=== PATIENT | male | born 1940 | race Caucasian/White ===

== ENCOUNTER → 2016-08-18 | Outpatient (CLI) | payer OTHER ==
[~2016-08-18] MED LIST: AMLO-110 PO; ASPCH81X PO; DOCU100C31 PO; FERR325T51 PO; LISI-787 PO; LISI40TA PO; LSN5 PO; METO25TA3 PO; NTRGSL4 UT; ONDA4TAB46 PO; OXYC-57 PO; PANC1200 PO; PANT40TA PO; POLY335019 PO; POTA1080 PO; POTA10TA30 PO; SERT1TAB72 PO; TPRSR25 PO
[2016-08-18 13:10] VITALS: BP_SYST 147; BP_SYST 161; BP_DIAS 69; BP_DIAS 82; PULSE 68; TEMP 37; O2SAT 98
--- NOTE | 2016-08-18 15:54 | Radiation Oncology Follow-Up ---
Radiation Oncology Follow-Up Date of Visit Aug 18, 2016. Reason For Visit 6 month follow-up Radiation Completion Date 01/01/16 Diagnosis (1) Pancreatic cancer Status: Acute Onset Date: 08/22/2015 Histology Subtype: adenocarcinoma Stage: ll (A) Permanent Comment: Painless jaundice, weight loss, diarrhea Abnormal ultrasound right upper quadrant 08/20/2015 dilated intra-and extrahepatic bile ducts Status post MRCP 08/20/2015 Status post MRI of the pancreas 08/21/2015 mass head of the pancreas 4 x 2 cm Status post ERCP with biopsies 08/22/2015 Adenocarcinoma moderately differentiated of the pancreas Status post upper EUS 08/29/2015 Stage uT3 uN1 Status post Whipple procedure 09/15/2015 Stage pT3 pN1 M0 Status post completion of radiation therapy 12/31/2012 received 5040 cGy combined with Xeloda Last Edited By: Marilyn Simms on Jan 19, 2016 16:49 History of Present Illness Mr. Lisa is a 76-year-old [place] who was noted to have development of acid reflux symptoms and significant diarrhea. With this he has had a 10 pound weight loss over the past month. Ultimately he developed dark urine, generalized weakness and jaundice as noted by his area the patient was seen and admitted To the [facility] on 08/20/2015 with painless jaundice and renal failure. A PA chest and abdominal series showed mild cardiac enlargement and a nonobstructed abdominal bowel gas pattern with fecal retention seen in the right colon. An ultrasound of the right upper quadrant revealed significant dilatation of the intra-and extra hepatic bile ducts as well as mild dilatation of the pancreatic duct. No clear obstructing lesion was identified, however, the appearance raises concern for an obstructing mass lesion likely at the level of the pancreatic head. A contrast- enhanced CT scan was recommended. The gallbladder was markedly dilated. An MRCP was performed revealing distended gallbladder and intra-and extrahepatic biliary duct dilatation. The common bile duct measured 1.5 cm in diameter. There was no evidence of pancreatic duct limitation. There was a distal common bile duct stricture of uncertain etiology. An MRI of the pancreas was performed which revealed moderate to marked biliary ductal dilatation with abrupt cutoff of the common distal bile duct within the region of the pancreatic head. There was mild pancreatic duct dilatation with abrupt cutoff of this duct. There was an apparent 4.0 x 2.0 cm mass within the pancreatic head highly suggestive of a adenocarcinoma of the pancreatic head. There is no evidence of metastatic disease otherwise seen within the abdomen. Total bilirubin was elevated at 13.4 with direct bilirubin elevated at 10.7. AST elevated at 328 and ALT elevated at 463. Alkaline phosphatase was elevated at 616. BUN was 38 and creatinine 2.2. On 08/22/2015 Dr. Jasso performed an ERCP.. A stent was placed and the site of stricture was biopsied and prostate. The entire main bile duct was dilated. The brushing revealed an adenocarcinoma. Case: [id number]. The biopsy revealed a moderately differentiated adenocarcinoma Case: [id number]. Following stenting BUN improved as did the creatinine. The fluoroscopic images from the [facility] demonstrated a high-grade stricture of the distal common bile duct with subsequent biliary stent placement. Total bilirubin decreased to 3.4 and direct bilirubin 2.6. Liver enzymes also improved but remained elevated. On 08/29/2015 Dr. Cervantes performed an upper EUS. This identified an irregular mass in the pancreatic head. The mass was hypoechoic measuring 2.5 x 3.5 cm. The borders were poorly defined. There was sonographic evidence suggesting invasion into the portal vein. An intact interface was seen between the mass in the superior mesenteric artery and celiac trunk suggesting a lack of invasion. There was dilation of the common bile duct and a stent was visualized. One malignant appearing lymph node was visualized in the peripancreatic region measuring 0.6 x 0.5 cm. The ultrasound staging was therefore auT3 uN1 The patient was seen in referral by Dr. Gustafson. She discussed the treatment options and specifically the role of surgery as the only curative option. He discussed the role of neoadjuvant and adjuvant systemic chemotherapy. She arranged for the patient to be seen by Dr. Aadmes. He saw the patient yesterday and felt that he was a candidate for surgery. This surgery has been scheduled for September 14. He has ordered a CT scan to be performed at [facility] on 09/08/2015. We were asked to see this patient in referral to discuss the potential role of adjuvant radiation following completion of his pancreatic surgery and review of the pathology. It is for this reason the patient is seen in referral. He was given combined radiation and chemotherapy. Radiation was given from to 01/01/2016. He received 5040 cGy. Chemotherapy comprised of Xeloda. Interim History He completed adjuvant chemotherapy following the combined radiation and chemotherapy. He did have difficulty with blood counts and required periodic transfusions of packed red blood cells and platelets. Please been followed closely over the past 6 months. He unfortunately continues to have weight loss. He has lost approximately 30 pounds. He has had multiple diagnostic studies and laboratory studies to help determine the cause of his weight loss. He does have discomfort in the right upper quadrant which radiates to the epigastric area and then to his back. He feels this is positional. If he leans forward it helps to relieve the discomfort. He has had laboratory studies including thyroid function studies are normal. He had CA 199 that was normal. In May he had a PET scan. This showed postsurgical changes of Whipple with focal uptake in the region of the choledochojejunostomy as well as the peripheral uptake around focal encapsulated fat just anterior to the gallbladder fossa. No definite measurable soft tissue component on this noncontrast CT. This may be physiologic versus recurrent disease. Short-term follow-up was recommended. Small amount of perihepatic and pelvic ascites as well as bilateral pleural effusions, new from prior exam. Low level uptake within mediastinal and right hilar lymph nodes which are stable in size dating back to August 2015, favored to be reactive. Due to his abdominal discomfort and MRI of the abdomen with and without contrast was performed on 08/13/2016. This showed postsurgical changes of Whipple procedure. Abnormal infiltrative signal at the jean hepatis in the hepatoduodenal ligament this may be post treatment related rather than recurrent disease. This is difficult to compared to prior given differences between modalities. Recommend follow-up in 3 months. 1 cm lesion at the hepatic dome, indeterminate this suggest to be benign. Small right pleural effusion. He has pain medication available. He does not have to take this on a regular basis and it does relieve the pain if needed. He states that he has been referred to gastroenterology to continue further workup and evaluation of the weight loss. He also had studies to evaluate for loss of fat in the stools. Allergies Coded Allergies: No Known Allergies (Verified , 04/14/16) Home Medications Scheduled Aspirin (Aspirin Chewable), 81 MG PO DAILY Lisinopril/Hctz (Zestoretic 20MG/12.5MG), 1 TAB PO DAILY Metoprolol Succ (Toprol Xl) (Toprol-Xl), 25 MG PO QAM Pancrelipase (Lipase-Protease- (Creon 01509), 1 CAP PO TID Pantoprazole (Protonix), 40 MG PO DAILY Potassium Citrate (Urocit-K), 1 TAB PO DAILY Sertraline Hcl (Zoloft), 25 MG PO DAILY Scheduled PRN Docusate Sodium (Docusate Sodium), 2 CAP PO DAILY PRN for Constipation Ondansetron Hcl (Zofran), 4 MG PO Q8 PRN for Nausea Oxycodone/Acetaminophen 5MG/325MG (Percocet 5MG/325MG), 1 TABLET PO Q4H PRN for Pain Polyethylene Glycol 3350 (Miralax), 17 GM PO DAILY PRN for Constipation Review of Systems Gastrointestinal: Symptoms: WNL GI Comments: Doesn't get hungry;no appetite; Oral: Symptoms: No Problems Respiratory: Symptoms: WNL Urinary: Comments: Slow stream; Skin: Symptoms: No Problems Physical Exam Vital Signs Date Time Temp Pulse Resp B/P Pulse Ox O2 Delivery O2 Flow Rate FiO2 08/18/16 13:10 37.0 68 24 161/82 98 147/69 Fatigue: None General Appearance: no apparent distress, + thin Eyes: normal inspection, EOMI ENT: normal ENT inspection, hearing grossly normal Respiratory/Chest: lungs clear, no respiratory distress, no accessory muscle use, + pertinent finding (clear at bases with mild transtreacheal congestion with cough) Cardiovascular: regular rate, rhythm, no gallop, no murmur Abdomen: non tender, soft Extremities: no pedal edema Neurologic/Psychiatric: no motor/sensory deficits, alert, normal mood/affect Skin: warm/dry Lymphatic: no adenopathy Additional Studies Studies as reviewed above. Assessment & Plan Plan: Continue regular follow-up with Dr. Gustafson. He has an appointment to see her next week. He continues evaluation for weight loss. He'll be seeing gastroenterology. He mentions some problems with nasal congestion. He has minimal cough. We reviewed all the above studies. We asked him to return to our office in 1 year. Recheck labs and scanning per Dr. Gustafson. I had the opportunity to speak to Dr. Gustafson. She will be seeing him next week and decide if a CT of the chest is indicated for his mild congestion. Total Time In Follow-Up I spent 25 minutes speaking to the patient in performing examination. I spent 15 minutes reviewing information in completing this note. Copy To Rachael Gustafson MD; Josue Lino M.D.(LAUREN) Problem Qualifiers (1) Pancreatic cancer: Pancreatic malignancy location: head of pancreas Qualified Codes: C25.0 - Malignant neoplasm of head of pancreas
== END | disposition home or self-care (01) ==
LOC: C.ONC 13:04
PROVIDERS: ATTEND Radiology Radiation Oncology
DX: Z08 Encounter for follow-up examination after completed treatment for malignant neoplasm (principal); Z92.3 Personal history of irradiation; Z85.07 Personal history of malignant neoplasm of pancreas

== ENCOUNTER → 2017-03-02 | Day surgery (SDC) | payer OTHER ==
[~2017-03-02] VITALS: Ht 172.7 cm; Wt 68.5 kg
[~2017-03-02] MED LIST changes: +ACETAMINOPHEN 325 MG TAB PO PRN; +ATROPINE SULFATE 0.1 MG/ML 5ML SYR IV PRN; +FENTANYL CITRATE INJ 50 MCG/1 ML 2 ML VIAL ONE; -FERR325T51 PO; +HEPARIN SOD (PORCINE) 1000 UNIT/ML 10 ML VIAL ONE; +MIDAZOLAM HCL 1 MG/ML 2ML VIAL ONE; +NITROGLYCERIN/D5W 100MCG/ML 20ML SYR ONE; -NTRGSL4 UT; +NiCARDipine HCL INJ 2.5 MG/ML 10 ML AMP ONE; +ONDANSETRON INJ 2 MG/ML 2 ML VIAL IV PRN; +SODIUM CHLORIDE 0.9% 1000ML 250 ML IV PRN
[2017-03-02 07:08] VITALS: BP 177/74; PULSE 47; TEMP 36.7; O2SAT 98; Ht 172.7 cm; Wt 68.5 kg
--- NOTE | 2017-03-02 09:40 | DIAGNOSTIC IMAGING REPORT ---
CAROTID DOPPLER NECK ART CLINICAL HISTORY: 76 years-old Male with carotid bruit. COMPARISON: None available TECHNIQUE: Multiple real time sonographic images of the carotid bifurcations were obtained assessing villanueva scale, color Doppler and spectral wave form appearance FINDINGS: RIGHT CAROTID: The peak systolic velocity measured 72.9 cm/sec. The end diastolic velocity measured 17.5 cm/sec. The ICA to CCA ratio measured 1.0 which correlates with a stenosis of 0-50%. There is a moderate degree of mixed plaquing of the right carotid bulb and proximal ICA. LEFT CAROTID: The peak systolic velocity measured 227 cm/sec. The end diastolic velocity measured 49 cm/sec. The ICA to CCA ratio measured 2.5 which correlates with a stenosis of 50-69%. Moderate to extensive predominantly calcified plaque is present in the left carotid bulb and proximal ICA. There is normal antegrade vertebral flow bilaterally. IMPRESSION: 1. Moderate to extensive calcified plaque of the left carotid bulb and proximal left ICA causes elevated peak systolic velocity correlating with 50-69% stenosis. 2. Moderate degree of mixed plaquing of the right carotid bulb and proximal right ICA causes less than 50% stenosis. 3. Normal antegrade vertebral flow bilaterally. The above report was generated using voice recognition software. It may contain grammatical, syntax or spelling errors. Electronically signed by: Mario Weaver M.D. 03/02/2017 9:39 AM Dictated Date/Time: 03/02/2017 9:32 AM
--- NOTE | 2017-03-02 09:54 | Procedure Note ---
Pre-Mod Sedation Assessment General Date of Moderate Sedation: Mar 02, 2017. Vital Signs: Vital Signs Past 12 Hours Date Time Temp Pulse Resp B/P (MAP) Pulse Ox O2 Delivery O2 Flow Rate FiO2 03/02/17 07:08 36.7 47 16 177/74 98 Room Air Review Cardiovascular: regular rate, rhythm, no edema, no gallop, + systolic murmur Abdomen: normal bowel sounds, non tender Lungs: chest non-tender, lungs clear Pre-Sedation Airway Assessment Oral Cavity: Dentures Short Thick Neck: No Hx of Sleep Apnea: No Smoking Status: Former Smoker Mallampati Classification: Class II ASA Classification: Class III Procedure Planning Contraindications-for Mod Sed: None Yes Notes The planned sedation has been discussed with the patient and consent obtained. I have identified the patient, determined the appropriateness of sedation and have assessed the patient immediately prior to the procedure. All medicine(s) and interventions are by my order.
--- NOTE | 2017-03-02 09:54 | History & Physical Bridge Note ---
H&P Re-Evaluation Bridge Note: I have examined the patient, reviewed the History & Physical and in the interval since the performance of the History & Physical I have noted the following changes of clinical significance: 3/4 left sided carotid bruit noted on exam. Carotid duplex performed demonstrating moderate calcified stenosis. Risks of procedure discussed with patient and at length who are agreeable to proceed.
--- NOTE | 2017-03-02 12:34 | Procedure Note ---
Post-Mod Sedation Assessment General Date of Moderate Sedation Mar 02, 2017. Vital Signs: Vital Signs Past 12 Hours Date Time Temp Pulse Resp B/P (MAP) Pulse Ox O2 Delivery O2 Flow Rate FiO2 03/02/17 12:20 45 16 141/70 (93) 98 Room Air 03/02/17 12:05 47 16 159/66 (97) 98 Room Air 03/02/17 11:50 46 16 177/84 (115) 98 Room Air 03/02/17 11:45 46 16 159/77 (104) 98 Room Air 03/02/17 11:40 46 16 163/77 (105) 98 Room Air 03/02/17 11:35 45 16 162/77 (105) 98 Room Air 03/02/17 11:32 45 16 160/77 (104) 98 Room Air 03/02/17 07:08 36.7 47 16 177/74 98 Room Air Review - Discharge Criteria Vital Signs Stable: Yes Alert/Oriented/Conversant: Yes Returned to Baseline Mental St: Yes Nausea Absent/Minimal: Yes Pain/Discomfort/Absent/Minimal: Yes Normal/Baseline Respirations: Yes Active Bleeding?: No Pt Received D/C Instructions: Yes Prescriptions Given: None Specific Proced. D/C Criteria Distal Pulses Present (Cardiac: Yes Groin site assessed-Card Cath: Yes Voided Prior To Discharge: Yes Discharged Patients Adult Escort/Transportation: Yes
--- NOTE | 2017-03-02 12:37 | Discharge Instructions ---
Discharge Instructions Procedure Procedure Date: Mar 02, 2017. Reason for Visit: Abnormal Stress Test *Dr Barr To Do*. Discharge Discharge Date: Mar 02, 2017. Discharge Diagnosis: PVD, abdominal aortic aneurysm Last Recorded Wt (Kilograms): 68.5 Anesthesia Post Anesthesia Instructions: If you have had General Anesthesia or IV Sedation: * Do not drive today. * Resume driving when surgeon permits. * Do not make important decisions or sign legal documents today. * Call surgeon for: 1. Temperature elevations greater than 101 degrees F. 2. Uncontrollable pain. 3. Excessive bleeding. 4. Persistent nausea and vomiting. 5. Medication intolerance (nausea, vomiting or rash). * For nausea and vomiting use only clear liquids such as: tea, soda, bouillon until nausea subsides, then gradually increase diet as tolerated. * If you have any concerns or questions, call your surgeon's office. If physician is unavailable and it is an emergency, call 911 or go to the nearest emergency room. Instructions Activity Recommendations: limitations as noted below Return to School/Work: with the following limitations Recommended Home Diet: low sodium, low cholesterol Allergies: Coded Allergies: No Known Allergies (Verified , 04/14/16) Provider Instructions ACTIVITY RECOMMENDATIONS: It is common to feel weak and fatigue for a few days. * Do not drive or operate any motorized equipment for the next three days. * Limit stair usage (2 or 3 trips a day only) for the next three days. * Do not lift anything heavier than 10 pounds for the next three days. * Do not engage in vigorous exercise or any sports for the next five days. * You may shower the day after your procedure, but do not immerse the area for three days. Cleanse the site gently with soap and water. SPECIAL CARE INSTRUCTIONS: * You may replace the pressure dressing or band-aid the morning after the procedure. * After your procedure, it is normal to have a small bruise or small lump at the site. Examine your site daily for any change in the bruise or lump, redness, swelling, drainage or numbness. Notify your doctor if any change. BLEEDING: * If there is a small amount of bleeding at the site, lie down and apply firm pressure with a clean cloth for ten minutes. When the bleeding stops, lie quietly keeping the procedure limb straight for six hours. Notify your doctor as soon as possible. * If the bleeding does not stop after ten minutes or if there is a large amount of bleeding or spurting, call 911 immediately. Continue to lie down and hold firm pressure until help arrives. SKIN IRRITATION: * You may experience some redness and/or swelling in the area where radiation was administered. If any skin irritation occurs, please contact your family physician. FOLLOW UP VISIT: Keep any scheduled doctor appointments. Follow Up Follow-up with: Dr. Jessica as scheduled Lali Logan Recommendations: Call your doctor if: * Temperature above 101 degrees * Pain not relieved by pain medicine ordered * There is increased drainage or redness from any incision * You have any unanswered questions or concerns. Your Doctors Instructions noted above were prepared by provider Everardo Barr. Patient Signature Section: Patient Instructions Signature Page Clarke Lisa Patient (or Guardian) Signature/Date: I have read and understand the instructions given to me by my caregivers. Caregiver/RN/Doctor Signature/Date: The above-named patient and/or guardian has received patient instructions on this date. + Original Patient Signature Page (only) stays with chart. Please make copy for patient.
--- NOTE | 2017-03-02 12:43 | Cardiac Catheterization ---
Procedure Note Procedure Date Mar 02, 2017. Pre-Procedure Diagnosis Positive Stress Test AUC Score 8 Post-Procedure Diagnosis Cardiothoracic Finding (Coronary arteries and arterial bypass conduits were not visualized.) Procedure(s) Performed Ultrasound Guided Vascular Access, Aortography, Femoral Artery Angiography Produce Assistant Dr. Barr Educational Technologist(s) Abhijit RTR Estimated Blood Loss 15cc Medication(s) Fentanyl, Versed, Lidocaine 1% Summary of Findings 3.3cm distal aortic AAA. Significant left common femoral and iliac artery tortuosity without significant stenosis. Unable to pass guide wire through AAA. Procedure aborted. Hemodynamics Rest Ao: 159/59/92 Final Ao: 160/53/89 LV: N/A Recommendations Medical therapy and/or Counseling Specimens None Radiation Exposure (mGy) 124 Contrast (mls) 15 Anesthesia Moderate sedation. Start 1053, End 1132 Procedural Complication(s) None Disposition Manager Hematology Holding/Recovery ACC Data Cardiac Status Clinical evaluation leading to the procedure CAD Presntation: Positive Stress Test Anginal Classification: CCS I Heart Failure: No Stress Testing w/SPECT MPI: Yes - Positive, Risk/Extent of Ischemia ( Intermediate) Diagnostic Status: Elective Closure Device Percutaneous Entry Location: Femoral Closure Device: Mynx Recommendations: Medical therapy and/or Counseling Intraprocedure Events Significant Dissection: No Perforation: No
[2017-03-02 16:20] VITALS: BP 134/66; PULSE 56; O2SAT 98
== END | disposition home or self-care (01) ==
LOC: C.CATH 06:37
PROVIDERS: ATTEND Internal Medicine Cardiovascular Disease
DX: I73.9 Peripheral vascular disease, unspecified (principal); I71.4 Abdominal aortic aneurysm, without rupture; I95.1 Orthostatic hypotension; I25.10 Atherosclerotic heart disease of native coronary artery without angina pectoris; I10 Essential (primary) hypertension; E78.5 Hyperlipidemia, unspecified; Z87.891 Personal history of nicotine dependence; Z85.07 Personal history of malignant neoplasm of pancreas; Z79.82 Long term (current) use of aspirin

== ENCOUNTER 2017-04-11 18:47 | Observation (INO) | payer OTHER ==
[~2017-04-11] VITALS: Ht 172.7 cm; Wt 70.6 kg
[~2017-04-11 18:47] MED LIST changes: -ACETAMINOPHEN 325 MG TAB PO PRN; -AMLO-110 PO; -ATROPINE SULFATE 0.1 MG/ML 5ML SYR IV PRN; -FENTANYL CITRATE INJ 50 MCG/1 ML 2 ML VIAL ONE; -HEPARIN SOD (PORCINE) 1000 UNIT/ML 10 ML VIAL ONE; -LISI-787 PO; -LSN5 PO; -MIDAZOLAM HCL 1 MG/ML 2ML VIAL ONE; -NITROGLYCERIN/D5W 100MCG/ML 20ML SYR ONE; -NiCARDipine HCL INJ 2.5 MG/ML 10 ML AMP ONE; -ONDANSETRON INJ 2 MG/ML 2 ML VIAL IV PRN; -POTA1080 PO; -SODIUM CHLORIDE 0.9% 1000ML 250 ML IV PRN; -TPRSR25 PO
[2017-04-11] MEDS ORDERED: SODIUM CHLORIDE 0.9% 1000ML 1,000 ML IV STA (19:14)
[2017-04-11] MEDS ORDERED: ONDANSETRON 8 MG/54 ML D5W IV STA (19:14)
[2017-04-11] MEDS ORDERED: MoRPHine SULFATE 4 MG/ML 1 ML CARP\\VIAL IV PRN (19:15)
--- NOTE | 2017-04-11 19:16 | EMERGENCY ROOM VISIT NOTE ---
History Report prepared by Mansooribcharles: Anila Crouch Under the Supervision of: Dr. Bin Wynn D.O. First contact with patient: 19:01 Chief Complaint: ABDOMINAL PAIN Stated Complaint: PAIN IN ABD,DIZZINESS,PASSING OUT History of Present Illness The patient is a 76 year old male who presents to the Emergency Room with complaints of persistent abdominal pain for the past day. He is accompanied by his . He rates his discomfort as an 8/10 in severity. OxyContin has provided minimal relief. Last night he vomited from his discomfort. He has also experienced dizziness, diarrhea and increased gas. He denies any melena, hematochezia or rectal bleeding. He also denies any chest pain or difficulty breathing. The dizziness occurs only when he gets up and moves around. The patient has undergone an appendectomy but still has his gallbladder. He admits to a history of pancreatic cancer and reports he underwent surgery for it approximately 1 year ago. His PCP is Dr. Lino with [facility]. 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 A total of 10 systems reviewed and were otherwise negative. Past Medical & Surgical Medical Problems: (1) CABG (2) CKD (chronic kidney disease) stage 3, GFR 30-59 ml/min (3) Colostomy and reversal (4) Coronary artery disease (5) Hyperlipidemia (6) Hypertension (7) Hypotension (8) Myocardial infarction (9) Obstructive jaundice (10) Osteoarthritis of right hip (11) Syncope Surgical Problems: (1) H/O colectomy (2) H/O total hip arthroplasty (3) H/O two vessel coronary artery bypass graft (4) H/O ventral hernia repair Family History FHx: heart disease BROTHER ( in his 50s of an HI) Social History Smoking Status: Former Smoker Alcohol Use: none Drug Use: none Marital Status: Housing Status: lives with family Occupation Status: retired Current/Historical Medications Scheduled Amlodipine (Norvasc), 5 MG PO DAILY Aspirin (Aspirin Chewable), 81 MG PO DAILY Lisinopril (Zestril), 40 MG PO DAILY Metoprolol Succ (Toprol Xl) (Toprol-Xl), 25 MG PO QAM Pancrelipase (Lipase-Protease- (Creon [id number]), 1 CAP PO TID Pantoprazole (Protonix), 40 MG PO DAILY Potassium Chloride (Potassium Chloride Cr), 10 MEQ PO QAM Sertraline Hcl (Zoloft), 25 MG PO DAILY Scheduled PRN Docusate Sodium (Docusate Sodium), 2 CAP PO DAILY PRN for Constipation Ondansetron Hcl (Zofran), 4 MG PO Q8 PRN for Nausea Oxycodone/Acetaminophen 5MG/325MG (Percocet 5MG/325MG), 1 TABLET PO Q4H PRN for Pain Polyethylene Glycol 3350 (Miralax), 17 GM PO DAILY PRN for Constipation Allergies Coded Allergies: No Known Allergies (Verified , 04/11/17) Physical Exam Vital Signs Date Time Temp Pulse Resp B/P (MAP) Pulse Ox O2 Delivery O2 Flow Rate FiO2 04/11/17 23:02 52 20 100/48 98 Room Air 04/11/17 21:32 54 20 116/54 92 Room Air 04/11/17 19:58 63 18 131/61 93 Room Air 04/11/17 19:21 79 04/11/17 19:07 94 Room Air 04/11/17 19:04 74 141/71 74 108/68 85 107/66 04/11/17 18:54 37.8 85 20 95/63 93 Room Air Physical Exam GENERAL: Patient is awake, alert, somewhat anxious appearing and uncomfortable EYES: The conjunctivae are clear. The pupils are round and reactive. EARS, NOSE, MOUTH AND THROAT: The nose is without any evidence of any deformity. Mucous membranes are moist tongue is midline NECK: The neck is nontender and supple. RESPIRATORY: Lung sounds are diminished throughout, but no rales, rhonchi or wheezing appreciated CARDIOVASCULAR: Regular rate and rhythm noted there no murmurs rubs or gallops normal S1 normal S2 GASTROINTESTINAL: The abdomen is mildly distended but soft, diffuse tenderness to palpation, mild guarding in lower abdomen MUSCULOSKELETAL/EXTREMITIES: There is no evidence of gross deformity full range of motion is noted in the hips and shoulders SKIN: There is no obvious evidence of any rash. There are no petechiae, pallor or cyanosis noted. NEUROLOGIC: Patient is awake alert and oriented x3 strength is symmetric patellar reflexes are 2+ bilaterally Medical Decision & Procedures ER Provider Diagnostic Interpretation: Radiology results as stated below per my review and radiologist interpretation: CHEST ONE VIEW PORTABLE HISTORY: 76 years-old Male ABDOMINAL PAIN/GI acute generalized abdominal pain. COMPARISON: Acute abdominal series radiographs 08/20/2015 TECHNIQUE: Portable upright AP view of the chest FINDINGS: Cardiac silhouette is within normal limits. There is atherosclerosis of the aorta. Prior median sternotomy. Left subclavian [id number]-[id number] catheter is present with distal tip terminating in the region of the superior aspect SVC. There is no pneumothorax, pleural effusion or focal airspace consolidation. Linear lucency projecting over the lateral aspect of the right hemithorax suggests a skin fold. Severe joint space narrowing with subchondral sclerosis involves the right clavicle humeral joint. Surgical clips are seen within the right upper abdomen. IMPRESSION: No acute cardiopulmonary process. The above report was generated using voice recognition software. It may contain grammatical, syntax or spelling errors. Electronically signed by: Mario Weaver M.D. 04/11/2017 7:[address] OF THE ABDOMEN AND PELVIS WITHOUT CONTRAST CLINICAL HISTORY: Abdominal pain and vomiting. COMPARISON STUDY: CT of the abdomen and pelvis November 12, 2015. TECHNIQUE: Axial images of the abdomen and pelvis were obtained without IV contrast. Images were reviewed in the axial, sagittal, and coronal planes. A dose lowering technique was utilized adhering to the principles of ALARA. FINDINGS: Evaluation of the abdomen and pelvis is suboptimal given the lack of IV and oral contrast. There are findings suggestive of a previous Whipple procedure with expected pneumobilia. This was present on prior exam of November 12, 2015. Unenhanced images of the liver, spleen, adrenal glands are unremarkable. A 1 cm right renal calculus is noted. There are no ureteral calculi. No hydronephrosis is present. Several right renal lesions are suboptimally assessed on this unenhanced exam but are similar to prior study and may reflect a combination of simple and hyperdense cysts. Small bowel is fluid-filled and mildly dilated. However, there is no transition point to strongly suggest a obstruction. The appendix is not visualized. Several foci suspected fat necrosis are again noted. These were present on prior exam. A small amount of ascites is noted within the abdomen and pelvis. No peritoneal nodules are identified on this unenhanced study. There is sigmoid diverticulosis without evidence for acute diverticulitis. A 3 cm infrarenal abdominal aortic aneurysm is unchanged. There is no evidence for rupture on this unenhanced study. IMPRESSION: 1. Findings suggestive of previous Whipple procedure with expected pneumobilia. Small amount of abdominal and pelvic ascites, a nonspecific finding. 2. Suboptimal evaluation of the abdomen and pelvis given the lack of IV and oral contrast. 3. Mildly dilated, fluid-filled small bowel. This may reflect an enteritis. A partial small bowel obstruction could appear similar although is considered less likely. 4. Stable 3 cm infrarenal abdominal aortic aneurysm without evidence for rupture. 5. Right-sided nephrolithiasis. No ureteral calculi or hydronephrosis. Electronically signed by: Blaine Jackson M.D. 04/11/2017 8:14 PM Laboratory Results 04/11/17 19:30 Red Blood Count 4.01, Mean Corpuscular Volume 92.5, Mean Corpuscular Hemoglobin 29.9, Mean Corpuscular Hemoglobin Concent 32.3, Mean Platelet Volume 8.5, Neutrophils (%) (Auto) 93.7, Lymphocytes (%) (Auto) 2.0, Monocytes (%) (Auto) 2.8, Eosinophils (%) (Auto) 1.0, Basophils (%) (Auto) 0.3, Neutrophils # (Auto) 9.87, Lymphocytes # (Auto) 0.21, Monocytes # (Auto) 0.30, Eosinophils # (Auto) 0.11, Basophils # (Auto) 0.03 04/11/17 19:30 Test 04/11/17 19:30 04/11/17 19:33 White Blood Count 10.54 K/uL (4.8-10.8) Red Blood Count 4.01 M/uL (4.7-6.1) Hemoglobin 12.0 g/dL (14.0-18.0) Hematocrit 37.1 % (42-52) Mean Corpuscular Volume 92.5 fL (80-100) Mean Corpuscular Hemoglobin 29.9 pg (25-34) Mean Corpuscular Hemoglobin Concent 32.3 g/dl (32-36) Platelet Count 205 K/uL (130-400) Mean Platelet Volume 8.5 fL (7.4-10.4) Neutrophils (%) (Auto) 93.7 % Lymphocytes (%) (Auto) 2.0 % Monocytes (%) (Auto) 2.8 % Eosinophils (%) (Auto) 1.0 % Basophils (%) (Auto) 0.3 % Neutrophils # (Auto) 9.87 K/uL (1.4-6.5) Lymphocytes # (Auto) 0.21 K/uL (1.2-3.4) Monocytes # (Auto) 0.30 K/uL (0.11-0.59) Eosinophils # (Auto) 0.11 K/uL (0-0.5) Basophils # (Auto) 0.03 K/uL (0-0.2) RDW Standard Deviation 45.0 fL (36.4-46.3) RDW Coefficient of Variation 13.3 % (11.5-14.5) Immature Granulocyte % (Auto) 0.2 % Immature Granulocyte # (Auto) 0.02 K/uL (0.00-0.02) Prothrombin Time 11.6 SECONDS (9.0-12.0) Prothromb Time International Ratio 1.1 (0.9-1.1) Activated Partial Thromboplast Time 22.8 SECONDS (21.0-31.0) Partial Thromboplastin Ratio 0.9 Anion Gap 10.0 mmol/L (3-11) Est Creatinine Clear Calc Drug Dose 42.6 ml/min Estimated GFR () 56.6 Estimated GFR (Non- 48.8 BUN/Creatinine Ratio 15.4 (10-20) Calcium Level 8.6 mg/dl (8.5-10.1) Magnesium Level 2.4 mg/dl (1.8-2.4) Total Bilirubin 0.9 mg/dl (0.2-1) Direct Bilirubin 0.3 mg/dl (0-0.2) Aspartate Amino Transf (AST/SGOT) 78 U/L (15-37) Alanine Aminotransferase (ALT/SGPT) 68 U/L (12-78) Alkaline Phosphatase 105 U/L (45-117) Total Creatine Kinase 50 U/L (39-308) Creatine Kinase MB < 0.5 ng/ml (0.5-3.6) Creatine Kinase MB Ratio (0-3.0) Troponin I < 0.015 ng/ml (0-0.045) Total Protein 7.3 gm/dl (6.4-8.2) Albumin 3.7 gm/dl (3.4-5.0) Amylase Level 23 U/L (25-115) Lipase 33 U/L (73-393) Thyroid Stimulating Hormone (TSH) 1.680 uIu/ml (0.300-4.500) Bedside Lactic Acid Venous 1.58 mmol/L (0.90-1.70) Laboratory results per my review. Medications Administered Medications (Trade) Dose Ordered Sig/Lucila Route Start Time Stop Time Status Last Admin Dose Admin Sodium Chloride 1,000 ml @ 999 mls/hr Q1H1M STAT IV 04/11/17 19:14 04/11/17 20:14 DC 04/11/17 19:40 999 MLS/HR Ondansetron HCl (Zofran 8mg Iv) 8 mg NOW STAT IV 04/11/17 19:14 04/11/17 19:16 DC 04/11/17 19:40 8 MG Morphine Sulfate (MoRPHine SULFATE INJ) 4 mg Q15M PRN IV 04/11/17 19:15 04/11/17 21:37 DC 04/11/17 19:40 4 MG ECG Indication: abdominal pain Rate (beats per minute): 82 Rhythm: normal sinus Findings: no ectopy, other (no acute ST segments) Change: no significant change (No change from August 20, 2015) ED Course 1908: The patient was evaluated in room A3. A complete history and physical examination were performed. 1913: Zofran 8 mg IV, NSS 1000 ml @ 999 mls/hr IV. 1914: Morphine Sulfate 4 mg IV. 2113: I discussed the patients case with Dr. Ludwig, [facility] Hospitalist. The patient will be further evaluated. Medical Decision Prior records/ancillary studies reviewed. Triage Nursing notes reviewed. The patient's history was concerning for abdominal pain. Differential diagnosis: Etiologies such as appendicitis, diverticulitis, PUD, biliary pathology, UTI, pancreatitis, obstruction, mesenteric ischemia, aortic pathology, infections, inflammatory bowel disease, renal colic, as well as others were entertained. The patient is a 76-year-old male who has a history of pancreatic cancer which was treated surgically. The patient presented to the emergency department for abdominal pain and vomiting. Physical exam which suggests that this is a bowel obstruction. Radiographic studies showed possible early small bowel obstruction or partial small bowel obstruction but no definite transition point. The patient was treated with IV fluids in the emergency department. His blood pressure improved significantly. I discussed the patient's laboratory and radiographic studies with him. Because of the patient's comorbidities I discussed his case with the on-call [facility] hospitalist. They've agreed to evaluate the patient in the emergency department for further management and disposition. Medication Reconcilliation Current Medication List: was personally reviewed by me Blood Pressure Screening Patient's blood pressure: Elevated blood pressure Blood pressure disposition: Did not require urgent referral Consults Time Called: 2109 [facility] Return[facility] Call: 2113 [facility] The patient will be further evaluated. Impression Primary Impression: Small bowel obstruction Additional Impressions: Abdominal pain Nausea, vomiting and diarrhea Scribe Attestation The scribe's documentation has been prepared under my direction and personally reviewed by me in its entirety. I confirm that the note above accurately reflects all work, treatment, procedures, and medical decision making performed by me. Departure Information Dispostion Being Evaluated By Hospitalist Referrals Josue Lino M.D.([facility]) (PCP) Patient Instructions My [facility] Problem Qualifiers Additional Impressions: Abdominal pain Abdominal location: generalized Qualified Codes: R10.84 - Generalized abdominal pain
--- NOTE | 2017-04-11 19:35 | DIAGNOSTIC IMAGING REPORT ---
CHEST ONE VIEW PORTABLE HISTORY: 76 years-old Male ABDOMINAL PAIN/GI acute generalized abdominal pain. COMPARISON: Acute abdominal series radiographs 08/20/2015 TECHNIQUE: Portable upright AP view of the chest FINDINGS: Cardiac silhouette is within normal limits. There is atherosclerosis of the aorta. Prior median sternotomy. Left subclavian [id number]-[id number]-[id number] catheter is present with distal tip terminating in the region of the superior aspect SVC. There is no pneumothorax, pleural effusion or focal airspace consolidation. Linear lucency projecting over the lateral aspect of the right hemithorax suggests a skin fold. Severe joint space narrowing with subchondral sclerosis involves the right clavicle humeral joint. Surgical clips are seen within the right upper abdomen. IMPRESSION: No acute cardiopulmonary process. The above report was generated using voice recognition software. It may contain grammatical, syntax or spelling errors. Electronically signed by: Mario Weaver M.D. 04/11/2017 7:34 PM Dictated Date/Time: 04/11/2017 7:31 PM
[2017-04-11 19:43] LABS: BASO % 0.3 %; BASO ABS # 0.03 K/uL (0-0.2); COMPLETE YES; HEMATOCRIT 37.1 % (42-52); IG% 0.2 %; LYMPH ABS # 0.21 K/uL (1.2-3.4); MEAN CELL VOLUME 92.5 fL (80-100); MEAN CORPUSCULAR HEMOGLOBIN 29.9 pg (25-34); MEAN CORPUSCULAR HGB CONC 32.3 g/dl (32-36); MEAN PLATELET VOLUME 8.5 fL (7.4-10.4); MONO % 2.8 %; NEUT % 93.7 %; PLATELET COUNT 205 K/uL (130-400); RED BLOOD COUNT 4.01 M/uL (4.7-6.1); WHITE BLOOD COUNT 10.54 K/uL (4.8-10.8)
[2017-04-11] MEDS ORDERED: AMLO-110 PO (19:56)
[2017-04-11 20:01] LABS: INR 1.1 (0.9-1.1); PARTIAL THROMBOPLASTIN RATIO 0.9; PROTHROMBIN TIME (PATIENT) 11.6 SECONDS (9.0-12.0)
[2017-04-11 20:08] LABS: ALT/SGPT 68 U/L (12-78); AMYLASE 23 U/L (25-115); BLOOD UREA NITROGEN 22 mg/dl (7-18); BUN/CREATININE RATIO 15.4 (10-20); CALCIUM 8.6 mg/dl (8.5-10.1); CARBON DIOXIDE 23 mmol/L (21-32); CHLORIDE 106 mmol/L (98-107); GLUCOSE 109 mg/dl (70-99); SODIUM 139 mmol/L (136-145)
[2017-04-11 20:13] LABS: ALKALINE PHOSPHATASE 105 U/L (45-117); AST/SGOT 78 U/L (15-37)
--- NOTE | 2017-04-11 20:15 | DIAGNOSTIC IMAGING REPORT ---
CT OF THE ABDOMEN AND PELVIS WITHOUT CONTRAST CLINICAL HISTORY: Abdominal pain and vomiting. COMPARISON STUDY: CT of the abdomen and pelvis November 12, 2015. TECHNIQUE: Axial images of the abdomen and pelvis were obtained without IV contrast. Images were reviewed in the axial, sagittal, and coronal planes. A dose lowering technique was utilized adhering to the principles of ALARA. FINDINGS: Evaluation of the abdomen and pelvis is suboptimal given the lack of IV and oral contrast. There are findings suggestive of a previous Whipple procedure with expected pneumobilia. This was present on prior exam of November 12, 2015. Unenhanced images of the liver, spleen, adrenal glands are unremarkable. A 1 cm right renal calculus is noted. There are no ureteral calculi. No hydronephrosis is present. Several right renal lesions are suboptimally assessed on this unenhanced exam but are similar to prior study and may reflect a combination of simple and hyperdense cysts. Small bowel is fluid-filled and mildly dilated. However, there is no transition point to strongly suggest a obstruction. The appendix is not visualized. Several foci suspected fat necrosis are again noted. These were present on prior exam. A small amount of ascites is noted within the abdomen and pelvis. No peritoneal nodules are identified on this unenhanced study. There is sigmoid diverticulosis without evidence for acute diverticulitis. A 3 cm infrarenal abdominal aortic aneurysm is unchanged. There is no evidence for rupture on this unenhanced study. IMPRESSION: 1. Findings suggestive of previous Whipple procedure with expected pneumobilia. Small amount of abdominal and pelvic ascites, a nonspecific finding. 2. Suboptimal evaluation of the abdomen and pelvis given the lack of IV and oral contrast. 3. Mildly dilated, fluid-filled small bowel. This may reflect an enteritis. A partial small bowel obstruction could appear similar although is considered less likely. 4. Stable 3 cm infrarenal abdominal aortic aneurysm without evidence for rupture. 5. Right-sided nephrolithiasis. No ureteral calculi or hydronephrosis. Electronically signed by: Blaine Jackson M.D. 04/11/2017 8:14 PM Dictated Date/Time: 04/11/2017 7:57 PM
[2017-04-11] MEDS ORDERED: ACETAMINOPHEN 325 MG TAB PO ONE (21:20)
[2017-04-11] MEDS ORDERED: ACETAMINOPHEN 325 MG TAB PO PRN ×2 (21:30→23:15)
--- NOTE | 2017-04-11 23:04 | DIAGNOSTIC IMAGING REPORT ---
CT OF THE HEAD WITHOUT CONTRAST CLINICAL HISTORY: Syncope. Dizziness. COMPARISON STUDY: No previous studies for comparison. CT DOSE: 537.48 mGy.cm TECHNIQUE: Helical axial images of the head were obtained without IV contrast. Automated exposure control was utilized for the study. A dose lowering technique was utilized adhering to the principles of ALARA. FINDINGS: No acute intracranial hemorrhage, midline shift or mass effect is present. Brain volume is normal for age. Ventricular system is unremarkable. The basilar cisterns are patent. There are no extra-axial collections. Gustafson-white differentiation is maintained. There are no findings to suggest acute dural sinus thrombosis or acute territorial infarct. There is no calvarial fracture. Visualized portions of the sinuses and the mastoid air cells are clear. IMPRESSION: No acute intracranial findings. Electronically signed by: Blaine Jackson M.D. 04/11/2017 11:03 PM Dictated Date/Time: 04/11/2017 11:00 PM
[2017-04-11] MEDS ORDERED: SODIUM CHLORIDE 0.9% 1000ML 1,000 ML IV ONE (23:15)
[2017-04-11] MEDS ORDERED: IV FLUIDS COMPLETED PRN (23:15)
[2017-04-11] MEDS ORDERED: NITROGLYCERIN 0.4 MG SL PER TAB CHARGE SL PRN (23:15)
[2017-04-11] MEDS ORDERED: OXYCODONE/ACETAMINOPHEN 5-325 TAB PO PRN (23:15)
[2017-04-11] MEDS ORDERED: HYDROmorphone INJ 0.5 MG/0.5 ML SYR IV PRN (23:15)
[2017-04-11] MEDS ORDERED: ONDANSETRON INJ 2 MG/ML 2 ML VIAL IV PRN (23:15)
[2017-04-11] MEDS ORDERED: SIMETHICONE 80 MG CHEW PO PRN (23:15)
[2017-04-11] MEDS ORDERED: POLYETHYLENE (MIRALAX) 17 GM PACK PO PRN (23:15)
[2017-04-12] VITALS (9 sets, daily range): BP systolic 113–157; BP diastolic 45–72; PULSE 49–62; TEMP 36.5–37; O2SAT 93–96; Ht 172.7 cm; Wt 70.6 kg
[2017-04-12] MEDS ORDERED: INFLUENZA VACCINE HIGH DOSE 65+ 0.5 ML SYR IM. ONE (01:15)
[2017-04-12] MEDS ORDERED: INFLUENZA ADMINISTRATION CHARGE ONE (01:15)
[2017-04-12] MEDS ORDERED: PNEUMOCOCCAL POLYSACCHARIDES 25 MCG/0.5 ML VIAL/SYR IM. ONE (01:15)
[2017-04-12] MEDS ORDERED: PNEUMOCOCCAL ADMINISTRATION CHARGE ONE (01:15)
[2017-04-12] MEDS ORDERED: SODIUM CHLORIDE 0.9% 500ML 500 ML IV ONE (01:45)
[2017-04-12] MEDS ORDERED: ONDANSETRON INJ 2 MG/ML 2 ML VIAL IV PRN (01:45)
[2017-04-12] MEDS ORDERED: PROMETHAZINE HCL INJ 12.5 MG in SODIUM CHLORIDE 0.9% 50ML 50 ML IV PRN (01:45)
--- NOTE | 2017-04-12 02:55 | HISTORY & PHYSICAL EXAMINATION ---
DATE OF ADMISSION: 04/11/2017 PRIMARY CARE PHYSICIAN: Josue Lino MD CHIEF COMPLAINT: Abdominal pain, syncope. HISTORY OF PRESENT ILLNESS: History obtained from patient and records. Medical history significant for chronic systolic heart failure secondary to probable ischemic cardiomyopathy (EF 40% TTE 2016), CAD sp CABG, hypertension, hyperlipidemia, peripheral vascular disease (AAA, carotid artery disease), past tobacco abuse, Pancreatic cancer status post surgery chemoradiation. chronic anemia (baseline hemoglobin of 12). Recent confinement was in August 2015 for painless jaundice. Patient later on found to have a pancreatic cancer. Subsequently underwent partial Whipple procedure, chemoradiation. About last week of January 2017 the patient was having issues with blood pressure. He was working under the hot sun when he had an unwitnessed syncopal event. Seen by his [facility] university internship, who requested for a 2D echo. 2D echo from February 2017 showed showed decreased EF followed by nuclear stress imaging showed questionable cheyenne-infarct ischemia. Cardiac catheterization procedure last 03/02/17 aborted secondary to peripheral vascular disease. Incidental finding of distal AAA 3.3cm during cardiac cath. Carotid Dopplers done on the same day showed moderate extensive calcified plaque , L ICA 50-69% and right ICA less than 50%. Patient had a followup visit with university internship on 03/09/2017. As per note, patient was fine, except that he would be lightheaded upon standing. SBP at time of visit was 160s. Patient preferred not to undergo cardiac catheterization at tertiary center as per note. Medical management for ischemic cardiomyopathy. Beta mustapha dose increased for PVCs. Patient to continue on home Lisinopril and Norvasc medications. [place] [facility] [place] for PVD. Today, the patient had abdominal discomfort with gas, vomiting, dizziness described as lightheadedness. Two bowel movements which are usual for him. Denies diarrhea. No chest pain, no shortness of breath. Dizziness worse on getting up. Patient recalls blacking out for a few seconds, unwitnessed. No tongue biting or incontinence. Patient was brought to the Emergency Room. PX noted to be orthostatic at the Emergency Room. MEDICAL HISTORY: As above. TTE Interpretation Summary The qualitative LV ejection fraction is 4044% (mildly reduced). There is mild diffuse left ventricular hypokinesis. The left ventricular diastolic function is mildly abnormal (grade I). The aortic valve is moderately calcified. Image and Doppler assessment of aortic stenosis severity is discordant: Mild aortic stenosis is suspected. Mild aortic valve regurgitation is present. Mild mitral regurgitation is present. The aortic root and proximal ascending aorta are mildly enlarged. Compared to last available study changes are noted as follows: Mild LV systolic dysfunction now present SURGERIES: He has had bowel surgery, vascular access procedures, CABG, hip surgery. HOME MEDICATIONS: Include aspirin, Norvasc, docusate sodium, lisinopril, Toprol-XL, Zofran, Percocet, Creon, MiraLax, potassium chloride, Protonix, Zoloft. ALLERGIES: No known drug allergies. FAMILY HISTORY: Heart disease. PERSONAL AND SOCIAL HISTORY: Past tobacco abuse. 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 REVIEW OF SYSTEMS: As per HPI. All other ROS negative. PHYSICAL EXAMINATION: VITAL SIGNS: Blood pressure noted to be 95/60, pulse 54, RR 20, temperature 37.8, O2 sats 98RA GENERAL: Noted to be comfortable, looks younger for age, pleasant. No respiratory distress SKIN: Pallor. Dry HEENT: Pale palpebral conjunctivae, dry mucosa. NECK: Supple, no tenderness, midline trachea. CHEST: Clear to auscultation, no chest wall tenderness. HEART: Bradycardic, systolic murmur, palpable LE pulses. ABDOMEN: Soft, nontender. Healed incisional scars EXTREMITIES: No edema, no tenderness, no gross LE deformities. NEUROLOGIC: Coherent, no gross focality. LABS: Hemoglobin noted to be 12, white blood cell count 7.5, platelets 205. Sodium 139, potassium 4, chloride 106, CO2 of 20, BUN 20, creatinine 1.4, glucose 109 . Troponin negative EKG as per my interpretation rate 80, normal sinus rhythm, no ischemia IMAGING: Chest x-ray, no acute pathology. CT head initial read no acute pathology CT abdomen and pelvis showed previous Whipple, 3 cm AAA, right-sided nephrolithiasis. ASSESSMENT AND PLAN: 1. Syncope likely secondary to orthostasis BP lower than usual of late, episodic bradycardia since 2013 exacerbated by viral GI illness Rule out seizures as etiology of recurrent unwitnessed syncopal events 2. chronic systolic heart failure secondary to probable ischemic cardiomyopathy (EF 40%) Patient slightly on the dry side. 3. mild on recent TTE 4. CAD status post CABG 5. PVD (AAA, carotid artery disease) 6. History of pancreatic cancer status post surgery, chemoradiation, currently in remission 7. Chronic anemia, Hg at baseline. 8. Past tobacco abuse. Observation PCU decrease maintenance home beta mustapha, ACEI doses hold Norvasc for now Cardiology consult in a.m. RE recommendations for BP meds given propensity for orthostasis, episodic bradycardia (Px well-known to Dr. Jessica.) gentle IV hydration EEG recurrent syncope Outpatient [facility] Vascular Surgery consult for PVD DVT prophylaxis. Lovenox SQ Full code. MTDD
[2017-04-12 05:48] LABS: BASO % 0.2 %; BASO ABS # 0.03 K/uL (0-0.2); COMPLETE YES; HEMATOCRIT 33.5 % (42-52); IG% 0.3 %; LYMPH % 2.6 %; LYMPH ABS # 0.38 K/uL (1.2-3.4); MEAN CELL VOLUME 94.6 fL (80-100); MEAN CORPUSCULAR HEMOGLOBIN 30.5 pg (25-34); MEAN CORPUSCULAR HGB CONC 32.2 g/dl (32-36); MEAN PLATELET VOLUME 8.7 fL (7.4-10.4); MONO % 4.8 %; NEUT % 91.1 %; PLATELET COUNT 186 K/uL (130-400); RED BLOOD COUNT 3.54 M/uL (4.7-6.1); WHITE BLOOD COUNT 14.71 K/uL (4.8-10.8)
[2017-04-12 06:17] LABS: BUN/CREATININE RATIO 17.4 (10-20); CALCIUM 7.9 mg/dl (8.5-10.1); CREATININE 1.4 mg/dl (0.60-1.40); POTASSIUM 4.5 mmol/L (3.5-5.1)
[2017-04-12] MEDS: PANCREAZE (LIPASE 10,500U) CAP PO SCH ×2 (08:16→14:00)
[2017-04-12] MEDS ORDERED: ENOXAPARIN 30 MG/0.3 ML SYR SC SCH (09:00)
[2017-04-12] MEDS ORDERED: AMLODIPINE BESYLATE 5 MG TAB PO SCH (09:00)
[2017-04-12] MEDS ORDERED: PANTOprazole SOD 40 MG TAB PO SCH (09:00)
[2017-04-12] MEDS ORDERED: LISINOPRIL 5 MG TAB PO SCH (09:00)
[2017-04-12] MEDS ORDERED: METOPROLOL SUCC 25MG EXT REL TAB PO SCH ×2 (09:00)
[2017-04-12] MEDS ORDERED: ASPIRIN 81 MG CHEW PO SCH (09:00)
[2017-04-12] MEDS ORDERED: SERTRALINE HCL 50 MG TAB PO SCH (09:00)
--- NOTE | 2017-04-12 09:32 | Progress Note ---
Medicine Progress Note Date & Time of Visit: Apr 12, 2017 at 09:15. Subjective patient seen resting in bed, comfortable, in good spirits states he feels improved today less dizziness when standing and walking in the room, no recurrence of syncope denies chest pain, palpitations, dyspnea had some chills yesterday, none today- denies headache, cough, abdominal pain, problems with BM or urination denies other symptoms Objective Last 8 Hrs Date Time Temp Pulse Resp B/P (MAP) Pulse Ox O2 Delivery O2 Flow Rate FiO2 04/12/17 07:10 37.0 49 18 121/67 (85) 95 Room Air 122/57 (78) 113/62 (79) 04/12/17 04:00 96 Room Air Physical Exam: General- oriented x 3, not in distress, speaks in sentences with no effort Head- atraumatic Eyes- PERRL, EOMI, anicteric ENT- oropharynx clear Neck- supple, no JVD, no adenopathy, no thyromegaly Lungs- clear breath sounds bilaterally Heart- regular rhythm; no murmur, normal rate Abdomen- normal bowel sounds, soft, nontender Extremities- no pretibial edema, no calf tenderness; peripheral pulses intact Neuro- alert, oriented x 3; no gross focal deficits Skin- warm & dry Laboratory Results: Last 24 Hours Test 04/11/17 19:30 04/11/17 19:33 04/12/17 05:23 04/12/17 08:53 White Blood Count 10.54 K/uL 14.71 K/uL Red Blood Count 4.01 M/uL 3.54 M/uL Hemoglobin 12.0 g/dL 10.8 g/dL Hematocrit 37.1 % 33.5 % Mean Corpuscular Volume 92.5 fL 94.6 fL Mean Corpuscular Hemoglobin 29.9 pg 30.5 pg Mean Corpuscular Hemoglobin Concent 32.3 g/dl 32.2 g/dl Platelet Count 205 K/uL 186 K/uL Mean Platelet Volume 8.5 fL 8.7 fL Neutrophils (%) (Auto) 93.7 % 91.1 % Lymphocytes (%) (Auto) 2.0 % 2.6 % Monocytes (%) (Auto) 2.8 % 4.8 % Eosinophils (%) (Auto) 1.0 % 1.0 % Basophils (%) (Auto) 0.3 % 0.2 % Neutrophils # (Auto) 9.87 K/uL 13.40 K/uL Lymphocytes # (Auto) 0.21 K/uL 0.38 K/uL Monocytes # (Auto) 0.30 K/uL 0.71 K/uL Eosinophils # (Auto) 0.11 K/uL 0.15 K/uL Basophils # (Auto) 0.03 K/uL 0.03 K/uL RDW Standard Deviation 45.0 fL 47.1 fL RDW Coefficient of Variation 13.3 % 13.6 % Immature Granulocyte % (Auto) 0.2 % 0.3 % Immature Granulocyte # (Auto) 0.02 K/uL 0.04 K/uL Prothrombin Time 11.6 SECONDS Prothromb Time International Ratio 1.1 Activated Partial Thromboplast Time 22.8 SECONDS Partial Thromboplastin Ratio 0.9 Sodium Level 139 mmol/L 139 mmol/L Potassium Level 4.0 mmol/L 4.5 mmol/L Chloride Level 106 mmol/L 108 mmol/L Carbon Dioxide Level 23 mmol/L 26 mmol/L Anion Gap 10.0 mmol/L 5.0 mmol/L Blood Urea Nitrogen 22 mg/dl 24 mg/dl Creatinine 1.40 mg/dl 1.40 mg/dl Est Creatinine Clear Calc Drug Dose 42.6 ml/min 44.1 ml/min Estimated GFR () 56.6 56.6 Estimated GFR (Non- 48.8 48.8 BUN/Creatinine Ratio 15.4 17.4 Random Glucose 109 mg/dl 93 mg/dl Calcium Level 8.6 mg/dl 7.9 mg/dl Magnesium Level 2.4 mg/dl Total Bilirubin 0.9 mg/dl Direct Bilirubin 0.3 mg/dl Aspartate Amino Transf (AST/SGOT) 78 U/L Alanine Aminotransferase (ALT/SGPT) 68 U/L Alkaline Phosphatase 105 U/L Total Creatine Kinase 50 U/L Creatine Kinase MB < 0.5 ng/ml Creatine Kinase MB Ratio Troponin I < 0.015 ng/ml Total Protein 7.3 gm/dl Albumin 3.7 gm/dl Amylase Level 23 U/L Lipase 33 U/L Thyroid Stimulating Hormone (TSH) 1.680 uIu/ml Bedside Lactic Acid Venous 1.58 mmol/L Assessment & Plan 76 year old male with history of CHF Systolic EF 45%, CAD/CABG, HTN, HLD, PVD History of Pancreatic CA, presenting with syncope and dizziness. SYNCOPE, DIZZINESS LIKELY FROM ORTHOSTASIS R/O ARRHYTHMIA - Metoprolol and Losartan decreased Amlodipine held Negative Orthostasis and BP increasing today symptoms also improving - continue Telemetry monitoring to r/o Tachy/bradyarrhythmia - EEG pending - Cardiology consulted EPISODE OF CHILLS AND FEVER - afebrile, (+) leukocytosis today - will order UA, Urine culture and blood culture - hold off antibiotics for today CHRONIC CHF SYSTOLIC TYPE EF 45% - felt to be dehydrated ob admission - given IV fluids - euvolemic today - not on diuretics at home CAD/CABG - denies chest pain - continue ASA, Metoprolol HTN - management per #1 PVD - on Aspirin - needs to be on Statin HISTORY OF PANCREATIC CANCER -stable HISTORY OF AAA - on Aspirin needs Statin - surveillance as outpatient B/L CAROTID STENOSIS - on Aspirin needs Statin - surveillance as outpatient DVT PROPHYLAXIS Lovenox FULL CODE DISPOSITION anticipate d/c home when medically stable PT/OT evaluation ff up with PCP and Cardiology Current Inpatient Medications: Current Inpatient Medications Medications (Trade) Dose Ordered Sig/Lucila Route Start Time Stop Time Status Last Admin Dose Admin Acetaminophen (Tylenol Tab) 325 mg Q6H PRN PO 04/11/17 21:30 05/11/17 21:29 Miscellaneous (Iv Fluids Completed) 1 ea PRN PRN N/A 04/11/17 23:15 04/11/18 23:14 Enoxaparin Sodium (Lovenox Inj) 30 mg Q24H SC 04/12/17 09:00 05/12/17 08:59 04/12/17 08:19 30 MG Acetaminophen (Tylenol Tab) 650 mg Q4H PRN PO 04/11/17 23:15 05/11/17 23:14 Nitroglycerin (Nitrostat Tab) 0.4 mg UD PRN SL 04/11/17 23:15 05/11/17 23:14 Aspirin (Aspirin Chew) 81 mg DAILY PO 04/12/17 09:00 05/12/17 08:59 04/12/17 08:19 81 MG Oxycodone/ Acetaminophen (Percocet 5-325mg Tab) 1 tab Q4H PRN PO 04/11/17 23:15 04/25/17 23:14 Pantoprazole Sodium (Protonix Tab) 40 mg DAILY PO 04/12/17 09:00 05/12/17 08:59 04/12/17 08:20 40 MG Sertraline HCl (Zoloft Tab) 25 mg DAILY PO 04/12/17 09:00 05/12/17 08:59 04/12/17 08:19 25 MG Amylase/Lipase/ Protease (Pancreaze (Lipase 10,500U) Cap) 1 cap TID PO 04/12/17 09:00 05/12/17 08:59 04/12/17 08:16 1 CAP Polyethylene (Miralax Powder Packet) 17 gm DAILY PRN PO 04/11/17 23:15 05/11/17 23:14 Hydromorphone HCl (Dilaudid Inj) 0.5 mg Q3H PRN IV 04/11/17 23:15 04/25/17 23:14 Ondansetron HCl (Zofran Inj) 4 mg Q6H PRN IV 04/11/17 23:15 05/11/17 23:14 Simethicone (Mylicon Chew Tab) 80 mg Q6H PRN PO 04/11/17 23:15 05/11/17 23:14 Metoprolol Succinate (Toprol Xl Tab) 12.5 mg QAM PO 04/12/17 09:00 05/12/17 08:59 04/12/17 08:18 12.5 MG Lisinopril (Zestril Tab) 5 mg DAILY PO 04/12/17 09:00 05/12/17 11:59 04/12/17 08:17 5 MG Promethazine HCl 12.5 mg/Sodium Chloride 50.5 ml @ 204 mls/hr Q6H PRN IV 04/12/17 01:45 05/12/17 01:44
--- NOTE | 2017-04-12 11:44 | CARDIOLOGY CONSULTATION ---
DATE OF CONSULTATION: 04/12/2017 DATE OF CONSULTATION: 04/12/2017 CONSULTATION REQUESTED BY: Dr. Ludwig. REASON FOR CONSULTATION: Syncope. HISTORY OF PRESENT ILLNESS: Mr. Lisa is a very pleasant 76-year-old gentleman who has been following with me as an outpatient for his history of coronary artery disease. He presented to [facility] late in the evening of 04/11/2017 with a complaint of a syncopal event. The patient states that he has been in his normal state of health until the last 2 days. Over the last 2 days he has been having issues with GI upset. He states his abdomen has just felt full, he has been rather nauseous and having significant abdominal pains. Despite this though he has been able to continue eating and drinking, has been taking his medications as directed. Then in the afternoon of 04/11/2017 the patient was sitting down when he suddenly lost consciousness. This was not witnessed. He states he only believes it was a second or two, he just felt himself become dizzy and he passed out. He quickly woke up, became concerned and came into the Emergency Department. In the Emergency Department, he was given narcotics for pain with some relief and was admitted to the telemetry unit. Currently, he is without complaint at rest and states he is feeling much better. He was originally little orthostatic upon admission but was given IV fluids and orthostatic numbers have improved. During this time he denies any other cardiac complaints, specifically denying any chest pain, shortness of breath, palpitations or lightheadedness. Upon further questioning though he does admit that he has been feeling a little dizzy last few days with head movements. He states that anytime he focuses on an object and then turns his head he will become significantly dizzy. He does not remember if he was doing his right before he passed out. Of note, the patient's blood pressure has remained high at home and has been consistently in the 160s despite medication adjustments as an outpatient. PAST SURGICAL HISTORY: 1. Coronary artery disease status post CABG in the setting of acute myocardial infarction in 1998 with unknown grafts. 2. Total hip replacement. 3. Whipple procedure. 4. Cardiac catheterization attempted 02/27/2017 aborted due to significant peripheral vascular disease. PAST MEDICAL ILLNESSES: 1. Coronary artery disease status post CABG x2 with unknown grafts in 1998. 2. Recently discovered cardiomyopathy, likely ischemic in origin, EF 40%. 3. Severe peripheral vascular disease. 4. Hypertension. 5. History of orthostatic hypotension and syncope. 6. Frequent PVCs. 7. Pancreatic carcinoma status post Whipple. 8. Tobacco abuse. 9. Hypertension. 10. Hyperlipidemia. 11. GERD. FAMILY HISTORY: Noncontributory. SOCIAL HISTORY: The patient is a longtime smoker, quit in 2003. Denies any alcohol or recreational drug use. He is and lives at home with his . He is retired. He has not had any sick contacts as of late and states that he has not recently traveled outside of his home lately at all. REVIEW OF SYSTEMS: As per HPI, all other review of systems reviewed and negative at this time. ALLERGIES: No known drug allergies. MEDICATIONS AN OUTPATIENT: 1. Atorvastatin 40 mg daily. 2. Metoprolol succinate 50 mg daily. 3. Aspirin 81 mg daily. 4. Lisinopril 40 mg daily. 5. Amlodipine 5 mg daily. 6. Percocet as needed. 7. Protonix daily. 8. Potassium chloride 10 mEq b.i.d. 9. Zoloft daily. 10. Zofran as needed. PHYSICAL EXAMINATION: VITALS: Temperature 37, pulse 49, respiratory rate 12, blood pressure 121/67 supine, 122/57 sitting, 113/62 standing. GENERAL: Awake, alert, oriented x3 in no acute distress. HEAD, EYES, EARS, NOSE, AND THROAT: Normocephalic, atraumatic. Pupils equal, round, and reactive to light and accommodation. Extraocular muscles intact. Anicteric sclerae. Moist mucous membranes. NECK: No JVD, no bruit. CARDIOVASCULAR: Regular. Positive S4. Normal S1 and S2. No S3. 3/6 mid to late systolic ejection murmur greatest at the right sternal border second intercostal space with radiation of bilateral carotids. No rubs. PULMONARY: Clear to auscultation bilaterally. No rales, rhonchi, or wheezing. ABDOMEN: Bowel sounds x4, soft. No rebound, guarding, tenderness. No organomegaly. EXTREMITIES: No clubbing, cyanosis or edema. +1 pedal pulses bilaterally. SKIN: Warm and dry. TEST RESULTS: A 2D echocardiogram performed 02/10/2017 was read as mildly reduced LV systolic function, EF 40-44% with mild diffuse left ventricular hypokinesis, grade 1 diastolic dysfunction, moderately calcified aortic valve with suspected mild aortic stenosis, mild aortic regurgitation, mild mitral regurgitation. Lexiscan nuclear stress test performed 02/23/2017 was interpreted as stress test positive for cheyenne-infarct ischemia in the inferior wall, moderate hypokinesis of the inferior wall, EF calculated to be 40% very frequent PVCs occurring as single beats of ventricular bigeminy. IMPRESSION: 1. Syncope. 2. Significant abdominal discomfort, questionable for viral gastroenteritis. 3. Complex coronary artery disease. 4. Complex peripheral vascular disease. 5. Hypertension. 6. Mild aortic stenosis. 7. History of pancreatic carcinoma status post Whipple procedure. RECOMMENDATIONS: It was my pleasure to see Mr. Lisa in consultation today. His syncopal event is in the setting of significant abdominal discomfort is suspicious for vasovagal event. The patient does have a history of presumed orthostatic syncope and I do not believe that vasovagal syncope would be the question. I am not quite sure what to make of his blood pressure though, especially since they have been consistently elevated through office visits and while taking them at home by himself. I do agree with the discontinuation of his amlodipine currently and the decreasing dose of his metoprolol and will continue to follow and adjust medications as necessary. In terms of his coronary artery disease it is stable. He is asymptomatic and there is no significant arrhythmias on monitor, so I do not believe that this was an arrhythmogenic event. Given his history of dizziness with head movement I believe he may be suffering from a component of benign positional vertigo so I will ask physical therapy to evaluate for Hallpike maneuver. Otherwise, he will be continued on his aspirin and he will be continued to monitor on telemetry at least overnight.
[2017-04-12] MEDS ORDERED: LISINOPRIL 40 MG TAB PO SCH (12:00)
[2017-04-12 12:19] LABS: URINE APPEARANCE CLEAR (CLEAR); URINE BILIRUBIN NEG (NEG); URINE COLOR YELLOW; URINE NITRITE NEG (NEG); URINE PH 7.5 (4.5-7.5); URINE SPECIFIC GRAVITY 1.017 (1.000-1.030); UROBILINOGEN NEG (NEG)
[2017-04-12 12:24] LABS: MANUAL MICROSCOPIC REQUIRED? NO; REVIEW REQ? NO
[2017-04-12] MEDS ORDERED: PANCREAZE (LIPASE 10,500U) CAP PO SCH (17:00)
[2017-04-12] MEDS ORDERED: LISINOPRIL 10 MG TAB PO ONE (18:00)
[2017-04-12] MEDS ORDERED: LSN5 PO (18:08)
[2017-04-12] MEDS ORDERED: TPRSR25 PO (18:08)
--- NOTE | 2017-04-12 18:14 | Discharge Instructions ---
Discharge Instructions Date of Service Apr 12, 2017. Admission Reason for Admission: Syncope Discharge Discharge Diagnosis / Problem: SYNCOPE Discharge Goals Goal(s): Diagnostic testing, Therapeutic intervention Activity Recommendations Activity Limitations: as noted below (NO HEAVY EXERTION UNTIL RE-EVALUATED BY PRIMARY CARE PHYSICIAN) Lifting Limitations: until after follow-up appointment Exercise/Sports Limitations: until after follow-up appointment Driving or Machine Use: UNTIL AFTER FOLLOW UP APPOINTMENT WITH PRIMARY CARE PHYSICIAN . Instructions / Follow-Up Instructions / Follow-Up PLEASE REVIEW YOUR NEW MEDICATION LIST AND FOLLOW INSTRUCTIONS CAREFULLY. CALL YOUR PRIMARY CARE PHYSICIAN OR RETURN TO THE ER IMMEDIATELY IF WITH RECURRENCE OR WORSENING OF SYMPTOMS. FOLLOW UP WITH PRIMARY CARE PHYSICIAN IN 3-5 DAYS. (CLINIC WILL CALL YOU FOR THE APPOINTMENT SCHEDULE). FOLLOW UP WITH INVESTIGATOR UTILITY BILL COMPLAINTS DR. JUAN IN 1-2 WEEKS. Call your Primary Care doctor if any of the following symptoms or problems start or get worse: * Shortness of breath or difficulty breathing * Wake up at night short of breath * Chest pain * Cough * Swelling of your hands, feet, or legs * More fatigued or tired with your normal activity * Palpitations - sudden fast heart beats WEIGHT * Weigh yourself every morning after using the bathroom. * Use the same scale. * Wear the same amount of clothing. * Write your weight down on a chart. * Call your Primary Care doctor if you gain more than 2-3 pounds in 1-2 days. MEDICATIONS * Use this discharge instruction sheet for medication instructions. * Take your medications at the time your doctor ordered. * Do not skip a dose of your medicines. * If you miss a dose of medicine, take it as soon as possible, but DO NOT DOUBLE A DOSE. * Read your medicine information when you get home. * Know all of the side effects of your medicine. If in doubt, ask your pharmacist * Call your Primary Care doctor's office if you have any side effects. * Be sure all of your doctors know what medicine and herbs you take (including cold, flu, and herbal medicine). Take the following with you to your follow-up doctor appointments: * Weight Chart * Medication List * List of questions Do not drink excessive alcohol, beer or wine. Current Hospital Diet Patient's current hospital diet: Clear Liquid Diet Discharge Diet Recommended Diet: Low Fiber Diet (THEN ADVANCE TO REGULAR DIET TOLERATED) Fluid Restriction: 2000 ml (8 cups) Procedures Procedures Performed: CT SCAN OF THE HEAD, CT SCAN OF THE ABDOMEN AND PELVIS, EEG Pending Studies Studies pending at discharge: yes List of pending studies: REPEAT BLOOD WORK C/O PRIMARY CARE PHYSICIAN Medical Emergencies . Who to Call and When: Medical Emergencies: If at any time you feel your situation is an emergency, please call 911 immediately. . Non-Emergent Contact Non-Emergency issues call your: Primary Care Provider Call Non-Emergent contact if: you have a fever, your pain is not controlled, your pain is worsening, you have any medication questions . . "Provider Documentation" section prepared by Checo Blum. . VTE Core Measure Inpt VTE Proph given/why not?: Enoxaparin (Lovenox)SQ
--- NOTE | 2017-04-12 18:20 | Discharge Summary ---
Discharge Summary Date of Service Apr 12, 2017. Discharge Summary Admission Date: Apr 11, 2017 at 23:10 Discharge Date: Apr 12, 2017 Discharge Disposition: Home (Against medical advice) Principal Diagnosis: DIZZINESS AND SYNCOPE, POSSIBLE ORTHOSTASIS, AND BENIGN PAROXYSMAL POSITIONAL VERTIGO Secondary Diagnoses/Problems: Please refer to hospital course below. Procedures: CT OF THE HEAD WITHOUT CONTRAST CLINICAL HISTORY: Syncope. Dizziness. COMPARISON STUDY: No previous studies for comparison. CT DOSE: 537.48 mGy.cm TECHNIQUE: Helical axial images of the head were obtained without IV contrast. Automated exposure control was utilized for the study. A dose lowering technique was utilized adhering to the principles of ALARA. FINDINGS: No acute intracranial hemorrhage, midline shift or mass effect is present. Brain volume is normal for age. Ventricular system is unremarkable. The basilar cisterns are patent. There are no extra-axial collections. Gustafson-white differentiation is maintained. There are no findings to suggest acute dural sinus thrombosis or acute territorial infarct. There is no calvarial fracture. Visualized portions of the sinuses and the mastoid air cells are clear. IMPRESSION: No acute intracranial findings. CT OF THE ABDOMEN AND PELVIS WITHOUT CONTRAST CLINICAL HISTORY: Abdominal pain and vomiting. COMPARISON STUDY: CT of the abdomen and pelvis November 12, 2015. TECHNIQUE: Axial images of the abdomen and pelvis were obtained without IV contrast. Images were reviewed in the axial, sagittal, and coronal planes. A dose lowering technique was utilized adhering to the principles of ALARA. FINDINGS: Evaluation of the abdomen and pelvis is suboptimal given the lack of IV and oral contrast. There are findings suggestive of a previous Whipple procedure with expected pneumobilia. This was present on prior exam of November 12, 2015. Unenhanced images of the liver, spleen, adrenal glands are unremarkable. A 1 cm right renal calculus is noted. There are no ureteral calculi. No hydronephrosis is present. Several right renal lesions are suboptimally assessed on this unenhanced exam but are similar to prior study and may reflect a combination of simple and hyperdense cysts. Small bowel is fluid-filled and mildly dilated. However, there is no transition point to strongly suggest a obstruction. The appendix is not visualized. Several foci suspected fat necrosis are again noted. These were present on prior exam. A small amount of ascites is noted within the abdomen and pelvis. No peritoneal nodules are identified on this unenhanced study. There is sigmoid diverticulosis without evidence for acute diverticulitis. A 3 cm infrarenal abdominal aortic aneurysm is unchanged. There is no evidence for rupture on this unenhanced study. IMPRESSION: 1. Findings suggestive of previous Whipple procedure with expected pneumobilia. Small amount of abdominal and pelvic ascites, a nonspecific finding. 2. Suboptimal evaluation of the abdomen and pelvis given the lack of IV and oral contrast. 3. Mildly dilated, fluid-filled small bowel. This may reflect an enteritis. A partial small bowel obstruction could appear similar although is considered less likely. 4. Stable 3 cm infrarenal abdominal aortic aneurysm without evidence for rupture. 5. Right-sided nephrolithiasis. No ureteral calculi or hydronephrosis. Consultations: [place] Stitcher Dr. Jessica Pending Studies/Follow-Up: Potassium discontinued as K level is 4.5, re-check K as outpatient; Please refer to hospital course below. Medication Reconciliation New Medications: Lisinopril (Lisinopril) 5 Mg Tab 1 TAB PO DAILY for 30 Days, #30 TABS 2 Refills Metoprolol Succinate (Metoprolol Succinate ER) 25 Mg Tabcr 12.5 MG PO QAM for 30 Days, #15 TABS 2 Refills Continued Medications: Aspirin (Aspirin Chewable) 81 Mg Chew 81 MG PO DAILY Docusate Sodium (Docusate Sodium) 100 Mg Cap 2 CAP PO DAILY PRN for Constipation for 15 Days, CAP Ondansetron Hcl (Zofran) 4 Mg Tab 4 MG PO Q8 PRN for Nausea, TAB Oxycodone/Acetaminophen 5MG/325MG (Percocet 5MG/325MG) Tab 1 TABLET PO Q4H PRN for Pain, TAB PAIN Pancrelipase (Lipase-Protease- (Creon 55084) 1 Cap Cap 1 CAP PO TID, CAP Pantoprazole (Protonix) 40 Mg Tab 40 MG PO DAILY, #30 TAB Polyethylene Glycol 3350 (Miralax) 1 Pow Pow 17 GM PO DAILY PRN for Constipation, #527 GM Sertraline Hcl (Zoloft) 25 Mg Tab 25 MG PO DAILY, TAB Discontinued Medications: Amlodipine (Norvasc) 5 Mg Tab 5 MG PO DAILY Lisinopril (Zestril) 40 Mg Tab 40 MG PO DAILY, TAB Metoprolol Succ (Toprol Xl) (Toprol-Xl) 25 Mg Tabcr 25 MG PO QAM, 0 Refills Potassium Chloride (Potassium Chloride Cr) 10 Meq Tab 10 MEQ PO QAM Admission Information HPI (per Admitting provider): History obtained from patient and records. Medical history significant for chronic systolic heart failure secondary to probable ischemic cardiomyopathy (EF 40% TTE 2016), CAD sp CABG, hypertension, hyperlipidemia, peripheral vascular disease (AAA, carotid artery disease), past tobacco abuse, Pancreatic cancer status post surgery chemoradiation. chronic anemia (baseline hemoglobin of 12). Recent confinement was in August 2015 for painless jaundice. Patient later on found to have a pancreatic cancer. Subsequently underwent partial Whipple procedure, chemoradiation. About last week of January 2017 the patient was having issues with blood pressure. He was working under the hot sun when he had an unwitnessed syncopal event. Seen by his [facility] buckle attacher, who requested for a 2D echo. 2D echo from February 2017 showed showed decreased EF followed by nuclear stress imaging showed questionable [place]-infarct ischemia. Cardiac catheterization procedure last 03/02/17 aborted secondary to peripheral vascular disease. Incidental finding of distal AAA 3.3cm during cardiac cath. Carotid Dopplers done on the same day showed moderate extensive calcified plaque , L ICA 50-69% and right ICA less than 50%. Patient had a followup visit with buckle attacher on 03/09/2017. As per note, patient was fine, except that he would be lightheaded upon standing. SBP at time of visit was 160s. Patient preferred not to undergo cardiac catheterization at tertiary center as per note. Medical management for ischemic cardiomyopathy. Beta mustapha dose increased for PVCs. Patient to continue on home Lisinopril and Norvasc medications. [place] [facility] referral for PVD. Today, the patient had abdominal discomfort with gas, vomiting, dizziness described as lightheadedness. Two bowel movements which are usual for him. Denies diarrhea. No chest pain, no shortness of breath. Dizziness worse on getting up. Patient recalls blacking out for a few seconds, unwitnessed. No tongue biting or incontinence. Patient was brought to the Emergency Room. PX noted to be orthostatic at the Emergency Room. MEDICAL HISTORY: As above. TTE Interpretation Summary The qualitative LV ejection fraction is 4044% (mildly reduced). There is mild diffuse left ventricular hypokinesis. The left ventricular diastolic function is mildly abnormal (grade I). The aortic valve is moderately calcified. Image and Doppler assessment of aortic stenosis severity is discordant: Mild aortic stenosis is suspected. Mild aortic valve regurgitation is present. Mild mitral regurgitation is present. The aortic root and proximal ascending aorta are mildly enlarged. Compared to last available study changes are noted as follows: Mild LV systolic dysfunction now present Physical Exam (per Admitting): VITAL SIGNS: Blood pressure noted to be 95/60, pulse 54, RR 20, temperature 37.8, O2 sats 98RA GENERAL: Noted to be comfortable, looks younger for age, pleasant. No respiratory distress SKIN: Pallor. Dry HEENT: Pale palpebral conjunctivae, dry mucosa. NECK: Supple, no tenderness, midline trachea. CHEST: Clear to auscultation, no chest wall tenderness. HEART: Bradycardic, systolic murmur, palpable LE pulses. ABDOMEN: Soft, nontender. Healed incisional scars EXTREMITIES: No edema, no tenderness, no gross LE deformities. NEUROLOGIC: Coherent, no gross focality. Hospital Course 76 year old male with history of CHF Systolic EF 45%, CAD/CABG, HTN, HLD, PVD History of Pancreatic CA, presenting with syncope and dizziness. SYNCOPE, DIZZINESS LIKELY FROM ORTHOSTASIS, BENIGN PAROXYSMAL POSITIONAL VERTIGO - Metoprolol and Losartan decreased Amlodipine held Negative Orthostasis and BP increased symptoms also improved no arrhythmias noted in Tele - Cardiology consulted, Dr. Jessica who agreed with decreasing Lisinopril from 40 to 5mg po daily and Metoprolol frmo 25 to 12.5mg po daily and titrate medications accordingly Norvasc discontinued - patient underwent [place] Hallpike maneuver by PT and reports marked improvement with symptoms after - despite extensive discussion with risks involved, patient has decided to sign out AMA as he "will become more anxious/upset if he stays another night" case discussed with patient and including plan of care, medication changes, precautions including checking blood pressure, etc. they were advised to return to the ER at anytime with no hesitation for worsening symptoms EPISODE OF CHILLS AND FEVER - afebrile, (+) leukocytosis - no clear source of infection - UA, Urine culture and blood culture pending CHRONIC CHF SYSTOLIC TYPE EF 45% - felt to be dehydrated ob admission - given IV fluids - euvolemic - not on diuretics at home CAD/CABG - denies chest pain - continue ASA, Metoprolol HTN - management per #1 PVD - on Aspirin - needs to be on Statin HISTORY OF PANCREATIC CANCER -stable HISTORY OF AAA - on Aspirin needs Statin - surveillance as outpatient B/L CAROTID STENOSIS - on Aspirin needs Statin - surveillance as outpatient DISPOSITION patient signed out against medical advice ff up with PCP in 3-5 days and Cardiology in 1-2 weeks Total time spent on discharge = 45 minutes This includes examination of the patient, discharge planning, medication reconciliation, and communication with other providers. Discharge Instructions Discharge Instructions Date of Service Apr 12, 2017. Admission Reason for Admission: Syncope Discharge Discharge Diagnosis / Problem: SYNCOPE Discharge Goals Goal(s): Diagnostic testing, Therapeutic intervention Activity Recommendations Activity Limitations: as noted below (NO HEAVY EXERTION UNTIL RE-EVALUATED BY PRIMARY CARE PHYSICIAN) Lifting Limitations: until after follow-up appointment Exercise/Sports Limitations: until after follow-up appointment Driving or Machine Use: UNTIL AFTER FOLLOW UP APPOINTMENT WITH PRIMARY CARE PHYSICIAN . Instructions / Follow-Up Instructions / Follow-Up PLEASE REVIEW YOUR NEW MEDICATION LIST AND FOLLOW INSTRUCTIONS CAREFULLY. CALL YOUR PRIMARY CARE PHYSICIAN OR RETURN TO THE ER IMMEDIATELY IF WITH RECURRENCE OR WORSENING OF SYMPTOMS. FOLLOW UP WITH PRIMARY CARE PHYSICIAN IN 3-5 DAYS. (CLINIC WILL CALL YOU FOR THE APPOINTMENT SCHEDULE). FOLLOW UP WITH LINTER OPERATOR DR. JESSICA IN 1-2 WEEKS. Call your Primary Care doctor if any of the following symptoms or problems start or get worse: * Shortness of breath or difficulty breathing * Wake up at night short of breath * Chest pain * Cough * Swelling of your hands, feet, or legs * More fatigued or tired with your normal activity * Palpitations - sudden fast heart beats WEIGHT * Weigh yourself every morning after using the bathroom. * Use the same scale. * Wear the same amount of clothing. * Write your weight down on a chart. * Call your Primary Care doctor if you gain more than 2-3 pounds in 1-2 days. MEDICATIONS * Use this discharge instruction sheet for medication instructions. * Take your medications at the time your doctor ordered. * Do not skip a dose of your medicines. * If you miss a dose of medicine, take it as soon as possible, but DO NOT DOUBLE A DOSE. * Read your medicine information when you get home. * Know all of the side effects of your medicine. If in doubt, ask your pharmacist * Call your Primary Care doctor's office if you have any side effects. * Be sure all of your doctors know what medicine and herbs you take (including cold, flu, and herbal medicine). Take the following with you to your follow-up doctor appointments: * Weight Chart * Medication List * List of questions Do not drink excessive alcohol, beer or wine. Current Hospital Diet Patient's current hospital diet: Clear Liquid Diet Discharge Diet Recommended Diet: Low Fiber Diet (THEN ADVANCE TO REGULAR DIET TOLERATED) Fluid Restriction: 2000 ml (8 cups) Procedures Procedures Performed: CT SCAN OF THE HEAD, CT SCAN OF THE ABDOMEN AND PELVIS, EEG Pending Studies Studies pending at discharge: yes List of pending studies: REPEAT BLOOD WORK C/O PRIMARY CARE PHYSICIAN
--- NOTE | 2017-04-14 00:54 | ELECTROENCEPHALOGRAPH REPORT ---
FOR: Dr. Ludwig. CLINICAL DIAGNOSIS: Syncope. EEG DIAGNOSIS: Mildly diffusely abnormal EEG during wakefulness. DESCRIPTION OF TRACING: This EEG was done as a bedside recording and is of reasonable technical quality. A simultaneous video analysis of patient movement and behavior was obtained. Photic stimulation was performed. Hyperventilation was not. Drowsiness and light sleep are not clearly recorded. Under these conditions, there is evidence for a background rhythm in the upper theta range of about 8 Hz of maximum frequency and about 40 microvolts of maximum amplitude. This appears to be maximum in posterior head regions and bilaterally symmetrical. Slightly slower and higher amplitude theta activity is seen in a symmetrical fashion over the central and frontal regions intermixed with occasional waveforms in the delta range. Beta activity is seen bifrontally and symmetrically. Photic stimulation induces no important changes and only a minimal driving response without photomyogenic or photoparoxysmal components. At no time during the waking tracing is there evidence for potentially epileptogenic activity in the form of polyspike or spike wave bursts, focal sharp waves or focal spikes. INTERPRETATION: This EEG is mildly diffusely abnormal in a highly nonspecific fashion consistent with a nonspecific generalized encephalopathy without lateralizing or focal features and without associated potentially epileptogenic patterns.
== END 2017-04-12 19:01 | disposition left against medical advice (07) ==
LOC: C.EDB 18:47 → C.MED 23:10 → ENRESERV 23:28
PROVIDERS: ADMIT Hospitalist; ATTEND Internal Medicine
DX: R42 Dizziness and giddiness (principal); R55 Syncope and collapse; I25.10 Atherosclerotic heart disease of native coronary artery without angina pectoris; I73.9 Peripheral vascular disease, unspecified; I42.9 Cardiomyopathy, unspecified; I10 Essential (primary) hypertension; E78.5 Hyperlipidemia, unspecified; K21.9 Gastro-esophageal reflux disease without esophagitis; Z95.1 Presence of aortocoronary bypass graft; Z87.891 Personal history of nicotine dependence; Z79.82 Long term (current) use of aspirin; Z98.890 Other specified postprocedural states

== ENCOUNTER → 2017-09-06 | Outpatient (CLI) | payer OTHER ==
[~2017-09-06] MED LIST changes: +AMLO-110 PO; +LSN5 PO; +TPRSR25 PO
[2017-09-06 14:08] VITALS: BP 134/63; PULSE 49; TEMP 36.5; O2SAT 98
--- NOTE | 2017-09-06 15:23 | Radiation Oncology Follow-Up ---
Radiation Oncology Follow-Up Date of Visit Sep 06, 2017. Reason For Visit Annual follow-up Radiation Completion Date 01/01/16 Diagnosis (1) Pancreatic cancer Status: Resolved Onset Date: 08/22/2015 Histology Subtype: Adenocarcinoma Stage: ll (A) Permanent Comment: Painless jaundice, weight loss, diarrhea Abnormal ultrasound right upper quadrant 08/20/2015 dilated intra-and extrahepatic bile ducts Status post MRCP 08/20/2015 Status post MRI of the pancreas 08/21/2015 mass head of the pancreas 4 x 2 cm Status post ERCP with biopsies 08/22/2015 Adenocarcinoma moderately differentiated of the pancreas Status post upper EUS 08/29/2015 Stage uT3 uN1 Status post Whipple procedure 09/15/2015 Stage pT3 pN1 M0 Status post completion of radiation therapy 01/01/2016 received 5040 cGy combined with Xeloda Last Edited By: Marilyn Simms on Sep 06, 2017 15:10 History of Present Illness Mr. Lisa development of acid reflux symptoms and significant diarrhea. With this he has had a 10 pound weight loss over the past month. Ultimately he developed dark urine, generalized weakness and jaundice as noted by his area the patient was seen and admitted To the [facility] on with painless jaundice and renal failure. A PA chest and abdominal series showed mild cardiac enlargement and a nonobstructed abdominal bowel gas pattern with fecal retention seen in the right colon. An ultrasound of the right upper quadrant revealed significant dilatation of the intra-and extra hepatic bile ducts as well as mild dilatation of the pancreatic duct. No clear obstructing lesion was identified, however, the appearance raises concern for an obstructing mass lesion likely at the level of the pancreatic head. A contrast-enhanced CT scan was recommended. The gallbladder was markedly dilated. An MRCP was performed revealing distended gallbladder and intra-and extrahepatic biliary duct dilatation. The common bile duct measured 1.5 cm in diameter. There was no evidence of pancreatic duct limitation. There was a distal common bile duct stricture of uncertain etiology. An MRI of the pancreas was performed which revealed moderate to marked biliary ductal dilatation with abrupt cutoff of the common distal bile duct within the region of the pancreatic head. There was mild pancreatic duct dilatation with abrupt cutoff of this duct. There was an apparent 4.0 x 2.0 cm mass within the pancreatic head highly suggestive of a adenocarcinoma of the pancreatic head. There is no evidence of metastatic disease otherwise seen within the abdomen. Total bilirubin was elevated at 13.4 with direct bilirubin elevated at 10.7. AST elevated at 328 and ALT elevated at 463. Alkaline phosphatase was elevated at 616. BUN was 38 and creatinine 2.2. On 08/22/2015 Dr. Jasso performed an ERCP.. A stent was placed and the site of stricture was biopsied and prostate. The entire main bile duct was dilated. The brushing revealed an adenocarcinoma. Case: [id number]. The biopsy revealed a moderately differentiated adenocarcinoma Case: [id number]. Following stenting BUN improved as did the creatinine. The fluoroscopic images from the [facility] demonstrated a high-grade stricture of the distal common bile duct with subsequent biliary stent placement. Total bilirubin decreased to 3.4 and direct bilirubin 2.6. Liver enzymes also improved but remained elevated. On 08/29/2015 Dr. Cervantes performed an upper EUS. This identified an irregular mass in the pancreatic head. The mass was hypoechoic measuring 2.5 x 3.5 cm. The borders were poorly defined. There was sonographic evidence suggesting invasion into the portal vein. An intact interface was seen between the mass in the superior mesenteric artery and celiac trunk suggesting a lack of invasion. There was dilation of the common bile duct and a stent was visualized. One malignant appearing lymph node was visualized in the peripancreatic region measuring 0.6 x 0.5 cm. The ultrasound staging was therefore auT3 uN1 The patient was seen in referral by Dr. Gustafson. She discussed the treatment options and specifically the role of surgery as the only curative option. He discussed the role of neoadjuvant and adjuvant systemic chemotherapy. She arranged for the patient to be seen by Dr. Adames. He saw the patient yesterday and felt that he was a candidate for surgery. This surgery has been scheduled for September 14. He has ordered a CT scan to be performed at [facility] on 09/08/2015. We were asked to see this patient in referral to discuss the potential role of adjuvant radiation following completion of his pancreatic surgery and review of the pathology. It is for this reason the patient is seen in referral. He was given combined radiation and chemotherapy. Radiation was given from to 01/01/2016. He received 5040 cGy. Chemotherapy comprised of Xeloda. Interim History He has been doing well over this past year. He has had a steady weight gain. Denies any difficulty with indigestion. He has occasional abdominal discomfort. This occurs once every 2-3 weeks. He has discussed this previously with Dr. Gustafson. It is felt that he may have some mild adhesions. His laboratory studies have been stable. He had a recheck PET scan as well as MRI over this past year. Denies any problems with diarrhea. He was hospitalized overnight for an episode of vertigo and dehydration. This resolved with IV fluids. This Took Pl. in April. As part of his workup he had a CT of the head without contrast. This did not show any metastatic disease. He also had a CAT scan of the chest, abdomen, and pelvis. There was no evidence of recurrent disease. Changes from previous surgery. Allergies Coded Allergies: No Known Allergies (Verified , 04/11/17) Home Medications Scheduled Amlodipine (Norvasc), 5 MG PO DAILY Aspirin (Aspirin Chewable), 81 MG PO DAILY Lisinopril (Zestril), 40 MG PO DAILY Metoprolol Succ (Toprol Xl) (Toprol-Xl), 25 MG PO QAM Pancrelipase (Lipase-Protease- (Creon 47031), 1 CAP PO TID Pantoprazole (Protonix), 40 MG PO DAILY Potassium Chloride (Potassium Chloride Cr), 10 MEQ PO QAM Sertraline Hcl (Zoloft), 25 MG PO DAILY Scheduled PRN Docusate Sodium (Docusate Sodium), 2 CAP PO DAILY PRN for Constipation Ondansetron Hcl (Zofran), 4 MG PO Q8 PRN for Nausea Oxycodone/Acetaminophen 5MG/325MG (Percocet 5MG/325MG), 1 TABLET PO Q4H PRN for Pain Polyethylene Glycol 3350 (Miralax), 17 GM PO DAILY PRN for Constipation Review of Systems Gastrointestinal: Symptoms: WNL GI Comments: Doesn't get hungry;no appetite; Oral: Symptoms: No Problems Respiratory: Symptoms: WNL Urinary: Symptoms: WNL Comments: Slow stream Skin: Symptoms: No Problems Physical Exam Vital Signs Date Time Temp Pulse Resp B/P (MAP) Pulse Ox O2 Delivery O2 Flow Rate FiO2 09/06/17 14:08 36.5 49 16 134/63 98 Fatigue: None General Appearance: no apparent distress Eyes: normal inspection, EOMI ENT: normal ENT inspection, hearing grossly normal Respiratory/Chest: lungs clear, no respiratory distress, no accessory muscle use Cardiovascular: regular rate, rhythm, no gallop, no murmur Abdomen: non tender, soft, no organomegaly Extremities: no pedal edema Neurologic/Psychiatric: no motor/sensory deficits, alert, normal mood/affect Skin: warm/dry Pain Management Patient Reports Pain: No Pain Management Plan He denies pain therefore requires no pain management. Laboratory Laboratory Results: were reviewed, and pertinent findings noted below Laboratory Comments: He had a CA 199 May 12, 2017 that was normal at 19 Pathology Pathology Results: not applicable Imaging Imaging Studies: were reviewed, and pertinent findings noted below Imaging Comments Date/Time of Imaging Study Study Completed: 11/09/2016 9:09 AM [employer] PACS Image Narrative EXAM MRI ABDOMEN WITH/WITHOUT CONTRAST-11/09/2016 9:09 am HISTORY pancreatic follow up, follow up MRI evaluate for recurrence COMPARISON Abdominal MRI 08/13/2026 TECHNIQUE Multiplanar, multisequential MR imaging of the abdomen was performed before and after the administration of intravenous contrast. FINDINGS Liver: The liver demonstrates normal signal and morphology. There are few scattered subcentimeter T2 hyperintense cysts. There is no fatty infiltration. Previously described tiny lesion the dome of the liver is not visualized in current exam likely due to its small size and technical factors. No new or suspicious liver lesions identified. Biliary ducts: Normal in caliber. Gallbladder: Surgically absent Pancreas: Postsurgical changes related to Whipple with resection of the pancreatic head. Stable mild dilation of the pancreatic duct. Residual pancreas is moderately atrophic. Spleen: Within normal limits. Adrenal glands: Within normal limits. Kidneys: Multiple simple bilateral renal cysts. There are few hemorrhagic cysts also noted bilaterally. No hydronephrosis. Lymph nodes: No lymphadenopathy identified. Peritoneum: Again noted is ill-defined increased T2 signal in the jean hepatis with corresponding increased DWI signal intensity. No focal mass lesion appreciated. Postsurgical change and in the right upper quadrant with small perihepatic fluid anteriorly. Vessels: Aneurysm of the infrarenal abdominal aorta measuring 3.3 cm in diameter. Abdominal wall: Postoperative changes. Lower chest: Within normal limits. Bones: Status post lower lumbar spinal fusion. IMPRESSION 1. Postsurgical change related to Whipple procedure. Unchanged appearance of increased T2 and DWI signal in the jean hepatis without clear mass lesion or enhancement. Findings favored represent post treatment change, however recommend continued attention on surveillance imaging. 2. Stable mild dilation of the pancreatic duct with associated pancreatic atrophy. Date/Time of Imaging Study Study Completed: 05/10/2017 8:04 AM [employer] PACS Image Narrative EXAM MRI ABDOMEN WITH/WITHOUT CONTRAST-05/10/2017 8:04 am HISTORY PANCREATIC CANCER COMPARISON MRI ABDOMEN WITH/WITHOUT CONTRAST dated 11/09/2016; CT THORAX WITHOUT CONTRAST dated 10/21/2016; PET CT SKULL BASE TO MID THIGH dated 06/09/2016; CT ABDOMEN /PELVIS WITH IV CONTRAST WITH ORAL dated 02/09/2016; CT ABDOMEN /PELVIS WITH IV CONTRAST WITH ORAL dated 09/22/2012; MRI ABDOMEN WITH/WITHOUT CONTRAST dated 08/13/2016; CT ABDOMEN /PELVIS WITH IV CONTRAST WITH ORAL dated 09/08/2015; CT ABDOMEN /PELVIS WITH IV CONTRAST WITH ORAL dated 10/13/2015; CT ABDOMEN /PELVIS WITH IV CONTRAST WITH ORAL dated 11/12/2015 TECHNIQUE Pre and post gadolinium enhanced multiplanar MRI Abdomenand MRCP. Motion blurring. FINDINGS Liver:There are 2 nonspecific enhancing right hepatic lobe lesions at the lateral margin of segment 7/6 with arterial hyperenhancing enhancement and persistent hyperenhancement throughout the exam measuring 12 x 25 mm image 34 series 1001 and 22 x 10 mm image 29 series 1001. These have a nonspecific appearance. On the axial views, they have a somewhat horizontally oriented linear appearance ; however, there is no known history of liver biopsy. These are new from the prior exam. Metastatic disease is not entirely excluded. There is mild heterogeneous enhancement about the inferior right hepatic lobe segment 6. PET-CT may be helpful for further assessment. Gallbladder/biliary tree: The gallbladder is surgically absent. There is mild intrahepatic biliary ductal dilatation. Patient is post choledocho jejunostomy. Mild pneumobilia. Pancreas:Postoperative changes post Whipple disease. No recurrent neoplasm is appreciated. There is chronic pancreatic atrophy and mild ductal dilatation upstream from the surgical bed. Spleen: Within normal limits. Adrenal glands: Within normal limits. Kidneys:There are stable right renal nonenhancing cysts, several which are increased T1 signal consistent with hemorrhagic/ proteinaceous cysts. Several punctate nonenhancing hemorrhagic cysts arm noted in the left kidney. Bowel: Postsurgical changes post Whipple procedure were better demonstrated on prior CT. Lymph nodes: No adenopathy. Peritoneum/retroperitoneum: Prior right upper quadrant and jean hepatis region edema has decreased. Vessels: No change in distal abdominal aortic mild saccular aneurysmal dilatation, currently 31 x 26 mm. Abdominal wall/soft tissues: Patient is post median sternotomy. Postsurgical changes are present in the mid ventral anterior abdominal wall. Bones/soft tissues: L3-L5 posterior spinal fusion hardware is noted. Lung bases: Within normal limits. IMPRESSION Stable postoperative appearance post Whipple. Two hyperenhancing horizontal linear right hepatic lobe lesions. There is no history of liver biopsy in EPIC. These have a nonspecific enhancement pattern. Atypical metastatic disease can't be excluded. PET-CT may be helpful for further assessment along with clinical correlation regarding hepatic procedures performed elsewhere. Stable saccular aneurysmal dilatation of the distal abdominal aorta, 31 x 26 mm. Other stable chronic findings as above. Authenticated By Authenticating Date Authenticating Time Reading Providers(s) PATRICK WHYTE MD 05-10-2017 14:25 PATRICK WHYTE MD Date/Time of Imaging Study Study Completed: 05/18/2017 4:04 PM [employer] PACS Image Narrative EXAM PET CT SKULL BASE TO MID THIGH FDG - 05/18/2017 4:04 pm HISTORY Pancreatic adenocarcinoma status post Whipple's Procedure and chemoradiation therapy. DATE OF DICTATION: 05/19/2017 COMPARISON MRI abdomen dated 05/10/2017 and 11/09/2016. PET-CT dated 06/09/2016. CT abdomen /pelvis dated 02/09/2016. TECHNIQUE Following the intravenous administration of approximately 0.52 mCi of FDG 18 and the oral administration of Gastrografin, PET/CT imaging was performed from the skull base to the mid thighs 60 minutes following the radiotracer injection. Low-dose CT was performed for anatomic localization and attenuation correction purposes only. The patient's glucose level at the time of radiotracer injection was 99mg/dL. This is a follow up PET/CT for the above indication. FINDINGS PET SCAN: Head/Neck: No metabolically active cervical lymphadenopathy. Physiologic FDG activity is present within the brain, salivary glands, and pharyngeal mucosa. Chest: No metabolically active axillary, hilar, or mediastinal lymphadenopathy. No metabolically active pulmonary nodules. Abdomen/Pelvis: No abnormal hepatic uptake in the areas of enhancement seen on 05/10/2017 MRI (approximately hepatic segment 5). Small focus of metabolic activity at the Whipple surgical roula no associated soft tissue density. No metabolically active abdominal or pelvic lymphadenopathy. Physiologic FDG activity is present within the gastrointestinal and genitourinary system. Musculoskeletal: No abnormal focal FDG activity localizes to the bones. No aggressive osseous abnormality. Uptake in the bilateral shoulder joint capsules consistent with degenerative changes/inflammation. ADDITIONAL CT FINDINGS: Lines: Left subclavian port catheter with tip in the superior vena cava. Head / Neck: Bilateral carotid bulb calcified atherosclerosis. Chest: Status post CABG. Moderate atherosclerosis of the aorta and great vessels dependent atelectasis. Abdomen / Pelvis: Status post Whipple procedure. Pneumobilia. Stable bilateral renal cysts. Large nonobstructing right renal calculi. Diverticulosis without evidence of diverticulitis. Moderate atherosclerosis of the aorta and branch vessels. Similar 3.1 cm saccular aneurysm of the distal aorta just above the bifurcation, not significantly changed from 3.2 cm in the 02/2016 CT abdomen/pelvis. Musculoskeletal / Other: Status post right hip arthroplasty and L3-L5 posterior lumbar fusion and laminectomy. Degenerative changes of the spine and shoulders. IMPRESSION 1. No abnormal uptake in the areas of enhancement seen on the recent MRI, no evidence of metastatic disease. 2. Focus of metabolic activity adjacent to surgical staple in the pancreatic bed with no associated CT findings, likely reactive to the staple. I have personally reviewed this examination and agree with the resident/fellow physician's interpretation. Resident Physician: EBONI MONTOYA [[id number]] Radiologist: KENNETH JENKINS DO [ [id number]] Patient: GERMÁN LISA Address1: [address] [place] [address] Rec: [id number] Address2: [place] [address] Acct ID: [id number] [facility] Zip: [place] [address] Date: 1940 Sex: M Room/Bed: Ref Phy: Josue Lino M.D.(LAUREN) SC: KRYSTAL Att Phy: Report #: [id number] Sola Phy: Josue Lino M.D.(LAUREN) Test: APWO Admit Phy: Air Intercept Controller: SUHAS Interpreting Phy: Blaine Jackson MD Diagnosis: PAIN IN ABD,DIZZINESS, PASSING OUT Ordering Phy: Bin Wynn D.O. Service Date: 04/11/17 Admit Date: 04/11/17 MNE: [id number] CONF: DICTATED BY: Blaine Jackson MD]] CC: Bin Wynn, Josue Palacios M.D.(LAUREN) Endcc: [~ rep ct add3]] CT OF THE ABDOMEN AND PELVIS WITHOUT CONTRAST CLINICAL HISTORY: Abdominal pain and vomiting. COMPARISON STUDY: CT of the abdomen and pelvis November 12, 2015. TECHNIQUE: Axial images of the abdomen and pelvis were obtained without IV contrast. Images were reviewed in the axial, sagittal, and coronal planes. A dose lowering technique was utilized adhering to the principles of ALARA. FINDINGS: Evaluation of the abdomen and pelvis is suboptimal given the lack of IV and oral contrast. There are findings suggestive of a previous Whipple procedure with expected pneumobilia. This was present on prior exam of November 12, 2015. Unenhanced images of the liver, spleen, adrenal glands are unremarkable. A 1 cm right renal calculus is noted. There are no ureteral calculi. No hydronephrosis is present. Several right renal lesions are suboptimally assessed on this unenhanced exam but are similar to prior study and may reflect a combination of simple and hyperdense cysts. Small bowel is fluid-filled and mildly dilated. However, there is no transition point to strongly suggest a obstruction. The appendix is not visualized. Several foci suspected fat necrosis are again noted. These were present on prior exam. A small amount of ascites is noted within the abdomen and pelvis. No peritoneal nodules are identified on this unenhanced study. There is sigmoid diverticulosis without evidence for acute diverticulitis. A 3 cm infrarenal abdominal aortic aneurysm is unchanged. There is no evidence for rupture on this unenhanced study. IMPRESSION: 1. Findings suggestive of previous Whipple procedure with expected pneumobilia. Small amount of abdominal and pelvic ascites, a nonspecific finding. 2. Suboptimal evaluation of the abdomen and pelvis given the lack of IV and oral contrast. 3. Mildly dilated, fluid-filled small bowel. This may reflect an enteritis. A partial small bowel obstruction could appear similar although is considered less likely. 4. Stable 3 cm infrarenal abdominal aortic aneurysm without evidence for rupture. 5. Right-sided nephrolithiasis. No ureteral calculi or hydronephrosis. Electronically signed by: Blaine Jackson M.D. 04/11/2017 8:14 PM Dictated Date/Time: 04/11/2017 7:57 PM Assessment & Plan Plan: Continue regular follow-up with Dr. Gustafson. He stated that he will be having an MRI scheduled in the future. Recheck laboratory studies through the medical oncologist. Continue regular follow-up with his primary care physician. We asked him to return to our office in 1 year. He may call if he has any questions or concerns in the interim. Total Time In Follow-Up I spent 20 minutes speaking to the patient and performing examination. I spent 15 minutes reviewing information and completing this note. Copy To Rachael Gustafson MD; Josue Lino M.D.(LAUREN) Problem Qualifiers (1) Pancreatic cancer: Pancreatic malignancy location: head of pancreas Qualified Codes: C25.0 - Malignant neoplasm of head of pancreas
== END | disposition home or self-care (01) ==
LOC: C.ONC 13:44
PROVIDERS: ATTEND Physician Assistant Medical
DX: Z08 Encounter for follow-up examination after completed treatment for malignant neoplasm (principal); Z92.3 Personal history of irradiation; Z85.07 Personal history of malignant neoplasm of pancreas

== ENCOUNTER 2018-07-13 07:00 | Inpatient (IN) ==
[2018-07-13] MEDS ORDERED: SODIUM CHLORIDE 0.9% 1000ML 500 ML IV ONE (07:27)
[2018-07-13 07:35] LABS: Basophils # (auto) 0.02 K/uL (0-0.2); Basophils % (auto) 0.1 %; Eosinophils # (auto) 0.19 K/uL (0-0.5); Eosinophils % (auto) 1.3 %; Hematocrit (blood only) 37.8 % (42-52); Hemoglobin 12.2 g/dL (14.0-18.0); Immature Granulocytes # (auto) 0.05 K/uL (0.00-0.02); Immature Granulocytes % (auto) 0.4 %; Lymphocytes # (auto) 0.81 K/uL (1.2-3.4); Lymphocytes % (auto) 5.7 %; Mean Corpuscular Hgb Conc 32.3 g/dL (32-36); Mean Corpuscular Volume 94.3 fL (80-100); Mean Platelet Volume 8.5 fL (7.4-10.4); Monocytes # (auto) 0.71 K/uL (0.11-0.59); Neutrophils # (auto) 12.44 K/uL (1.4-6.5); Neutrophils % (auto) 87.5 %; Platelet Count 337 K/uL (130-400); RDW Coefficient of Variation 14.8 % (11.5-14.5); RDW Standard Deviation 50.8 fL (36.4-46.3); Red Blood Count 4.01 M/uL (4.7-6.1); White Blood Count 14.22 K/uL (4.8-10.8)
[2018-07-13 07:43] LABS: BUN Creatinine Ratio 21.6 (10-20); Calcium 8.7 mg/dl (8.5-10.1); Creatinine Clr Calc Pharmacy 36.5 ml/min; Est GFR (African American) 52.5; Est GFR (Non-African American) 45.3; INR 1.2 (0.9-1.1); Partial Thromboplastin Time 25.7 Seconds (21.0-31.0); Potassium 4.4 mmol/L (3.5-5.1); Prothrombin Time 11.8 Seconds (9.0-12.0)
[2018-07-13 07:45] LABS: Albumin Globulin Ratio 0.4 (0.9-2); Bilirubin,Total 0.7 mg/dl (0.2-1); Globulin 5.2 gm/dl (2.5-4.0); Total Protein 7.2 gm/dl (6.4-8.2)
--- NOTE | 2018-07-13 07:59 | Emergency Department Note ---
Entered by Anila Crouch acting as a scribe for History of Present Illness General Chief complaint: Confusion Time Seen by Provider: 07/13/18 07:27 Source: patient Mode of arrival: EMS Limitations: no limitations History of Present Illness Onset (ago): week(s) 1 Location: head Pain Consistency: + other (worsening) Relieved By: + none Exacerbated By: + none Associated symptoms: + chest pain, + nausea/vomiting (+nausea, -vomiting) and + other (+hematuria); no fever/chills and no shortness of breath The patient is a 77 year old male who presents to the Emergency Room with complaints of worsening confusion for the past 1 week. He is accompanied by his . She reports the patient has been increasingly combative about "everything ". She denies any known metastases of his pancreatic cancer to the brain. This morning the patient fell at home, so his called EMS. The patient denies any recent fevers or difficulty breathing. He does complain of some chest pain. His states he has experienced hematuria, and she thinks he may have a UTI. The patient admits to nausea but has not vomited. His notes the patient had bilateral pleural effusions drained last week by Dr. Hernandez, and 2 liters of fluid were taken off. He is not currently receiving chemotherapy for the pancreatic cancer. Home Medications Home Medications Medication Instructions Recorded Confirmed Type docusate sodium 100 mg PO DAILY PRN 06/19/18 07/13/18 History [id number] 1 tab PO QID 06/19/18 07/13/18 History ondansetron HCl 4 mg PO Q8H PRN 06/19/18 07/13/18 History oxycodone-acetaminophen 1 tab PO Q4H PRN 06/19/18 07/13/18 History pantoprazole 40 mg PO QAM 06/19/18 07/13/18 History sertraline 25 mg PO QAM 06/19/18 07/13/18 History amlodipine 10 mg PO DAILY 07/13/18 07/13/18 History aspirin 81 mg PO QAM 07/13/18 07/13/18 History atorvastatin 40 mg PO QAM 07/13/18 07/13/18 History lisinopril 40 mg PO DAILY 07/13/18 07/13/18 History metoprolol succinate 50 mg PO DAILY 07/13/18 07/13/18 History Allergies Allergy/AdvReac Type Severity Reaction Status Date / Time No Known Allergies Allergy Verified 07/13/18 08:26 Past Med/Surg History Medical History CAD (coronary artery disease) (Chronic) Hypertension (Chronic) Osteoarthritis of right hip (Chronic) CKD (chronic kidney disease) stage 3, GFR 30-59 ml/min (Chronic) Acute kidney injury (Acute) Dehydration (Acute) Pancreatic cancer (Chronic 08/22/15) "Painless jaundice, weight loss, diarrhea Abnormal ultrasound right upper quadrant 08/20/2015 dilated intra-and extrahepatic bile ducts Status post MRCP 08/20/2015 Status post MRI of the pancreas 08/21/2015 mass head of the pancreas 4 x 2 cm Status post ERCP with biopsies 08/22/2015 Adenocarcinoma moderately differentiated of the pancreas Status post upper EUS 08/29/2015 Stage uT3 uN1 Status post Whipple procedure 09/15/2015 Stage pT3 pN1 M0 Status post completion of radiation therapy 01/01/2016 received 5040 cGy combined with Xeloda " Surgical History H/O two vessel coronary artery bypass graft (Chronic) "09/23/1998" H/O total hip arthroplasty (Chronic) "11/2013" H/O colectomy (Chronic) "h/o partial colectomy with colostomy 03/2014 and later reversal " H/O ventral hernia repair (Chronic) "with mesh " Family History Other Cancer HTN (hypertension) Heart disease Kidney disease Social History Current Living Situation: Spouse Other Information That Helps Us Care for You: No Feels Safe at Home: Yes Safety Concerns: Feels Safe At This Time Smoking Status: Former smoker Second Hand Exposure: No Hx Alcohol Use: No Hx Substance Use: No Beliefs That Will Affect Care: None Preferred Language: Bengali Communication Ability: Effective Review of Systems See HPI for pertinent positives & negatives. and A total of 10 systems reviewed and were otherwise negative Physical Exam Vital Signs Vital Signs - 24 hr 07/13/18 06:50 07/13/18 08:00 07/13/18 08:30 Temperature 36.5 C Temperature Source Oral Sepsis Recent Fever Within 48 Hours No Sepsis New/Unexplained Change in Mental Status No Sepsis Action Taken by Nursing No Action Required Pulse Rate 79 Pulse Rate [Apical] 65 71 Pulse Rate [Left Finger] Pulse Rhythm [Apical] Regular Regular Pulse Strength [Apical] Normal Normal Respiratory Rate 20 22 24 Respiratory Effort / Characteristics Non-Labored Spontaneous Non-Labored Spontaneous Non-Labored Spontaneous Respiratory Depth Normal Normal Normal Respiratory Pattern Regular Regular Blood Pressure 120/82 Blood Pressure [Left Arm] Blood Pressure [Right Arm] 109/60 117/72 Blood Pressure Mean 94 Blood Pressure Mean [Left Arm] Blood Pressure Mean [Right Arm] 76 87 Blood Pressure Position [Left Arm] Pulse Oximetry 93 95 96 Oxygen Delivery Method Room Air Room Air Room Air 07/13/18 08:45 07/13/18 09:00 07/13/18 09:15 Temperature Temperature Source Sepsis Recent Fever Within 48 Hours Sepsis New/Unexplained Change in Mental Status Sepsis Action Taken by Nursing Pulse Rate Pulse Rate [Apical] 75 74 119 H Pulse Rate [Left Finger] Pulse Rhythm [Apical] Regular Regular Pulse Strength [Apical] Normal Normal Respiratory Rate 22 18 22 Respiratory Effort / Characteristics Non-Labored Spontaneous Non-Labored Spontaneous Non-Labored Spontaneous Respiratory Depth Normal Normal Normal Respiratory Pattern Regular Regular Blood Pressure Blood Pressure [Left Arm] Blood Pressure [Right Arm] 122/7 L 128/75 Blood Pressure Mean Blood Pressure Mean [Left Arm] Blood Pressure Mean [Right Arm] 45 92 Blood Pressure Position [Left Arm] Pulse Oximetry 95 95 95 Oxygen Delivery Method Room Air Room Air Room Air 07/13/18 09:30 07/13/18 09:45 07/13/18 10:00 Temperature Temperature Source Sepsis Recent Fever Within 48 Hours Sepsis New/Unexplained Change in Mental Status Sepsis Action Taken by Nursing Pulse Rate Pulse Rate [Apical] 64 57 L 58 L Pulse Rate [Left Finger] Pulse Rhythm [Apical] Pulse Strength [Apical] Respiratory Rate 24 22 22 Respiratory Effort / Characteristics Respiratory Depth Respiratory Pattern Blood Pressure Blood Pressure [Left Arm] Blood Pressure [Right Arm] 137/74 123/70 122/65 Blood Pressure Mean Blood Pressure Mean [Left Arm] Blood Pressure Mean [Right Arm] 95 87 84 Blood Pressure Position [Left Arm] Pulse Oximetry 94 98 Oxygen Delivery Method 07/13/18 10:15 07/13/18 10:30 07/13/18 10:45 Temperature Temperature Source Sepsis Recent Fever Within 48 Hours Sepsis New/Unexplained Change in Mental Status Sepsis Action Taken by Nursing Pulse Rate Pulse Rate [Apical] 65 71 62 Pulse Rate [Left Finger] Pulse Rhythm [Apical] Pulse Strength [Apical] Respiratory Rate 24 22 22 Respiratory Effort / Characteristics Respiratory Depth Respiratory Pattern Blood Pressure Blood Pressure [Left Arm] Blood Pressure [Right Arm] 131/76 118/78 130/75 Blood Pressure Mean Blood Pressure Mean [Left Arm] Blood Pressure Mean [Right Arm] 94 91 93 Blood Pressure Position [Left Arm] Pulse Oximetry 93 93 94 Oxygen Delivery Method 07/13/18 10:47 07/13/18 11:00 07/13/18 11:15 Temperature Temperature Source Sepsis Recent Fever Within 48 Hours Sepsis New/Unexplained Change in Mental Status Sepsis Action Taken by Nursing Pulse Rate Pulse Rate [Apical] 71 67 Pulse Rate [Left Finger] Pulse Rhythm [Apical] Regular Pulse Strength [Apical] Respiratory Rate 23 20 Respiratory Effort / Characteristics Non-Labored Spontaneous Respiratory Depth Normal Normal Normal Respiratory Pattern Regular Blood Pressure Blood Pressure [Left Arm] Blood Pressure [Right Arm] 127/86 135/77 Blood Pressure Mean Blood Pressure Mean [Left Arm] Blood Pressure Mean [Right Arm] 99 96 Blood Pressure Position [Left Arm] Pulse Oximetry 95 94 Oxygen Delivery Method Room Air Room Air Room Air 07/13/18 11:27 07/13/18 15:19 07/13/18 15:32 Temperature 36.3 C L Temperature Source Oral Sepsis Recent Fever Within 48 Hours Sepsis New/Unexplained Change in Mental Status Sepsis Action Taken by Nursing Pulse Rate 67 Pulse Rate [Apical] Pulse Rate [Left Finger] 75 Pulse Rhythm [Apical] Pulse Strength [Apical] Respiratory Rate 20 20 Respiratory Effort / Characteristics Respiratory Depth Normal Respiratory Pattern Regular Blood Pressure 135/77 Blood Pressure [Left Arm] 111/71 Blood Pressure [Right Arm] Blood Pressure Mean Blood Pressure Mean [Left Arm] 84 Blood Pressure Mean [Right Arm] Blood Pressure Position [Left Arm] Lying Pulse Oximetry 94 98 Oxygen Delivery Method Room Air Room Air Room Air General: Well developed, chronically ill-appearing older male, in no acute distress, breathing comfortably on room air. Normal speech HEENT: Normal cephalic atraumatic. Pupils are equal round and reactive to light. Extraocular movements are intact. Oropharynx is pink with moist mucous membranes. No swelling of the mouth lips or tongue. Neck: Supple with a midline trachea. No meningeal signs or stiffness, no JVD or bruits. No Stridor. Chest: Diminished breath sounds at the right base. No wheezes or rhonchi. No increased work of breathing. Heart: Regular rate and rhythm without murmurs or gallops. Abdomen: Soft nontender, nondistended without rebound guarding or rigidity. Extremities: No cyanosis clubbing or edema. No calf tenderness or assymetry Spine/Back. Non tender to palpation. No CVA tenderness Skin: Good turgor without rashes. Neurologic exam: Patient is alert to person and place, but not date. Cranial nerves two through 12 are intact. Motor and sensation are intact and symmetrical throughout. Course 0721: Past medical records reviewed. The patient was evaluated in room A12, and a complete history and physical examination were performed. 0750: I reevaluated the patient. He just had bloodwork drawn and is resting comfortably. 0925: I reevaluated the patient. He is resting comfortably. I discussed my recommendation he remain in the hospital for further evaluation and management and he and his verbalized complete understanding and agreement. 0930: I discussed the patients case with DAYANARA Carvalho [facility]. The patient will be further evaluated. Consultations Consultation #1: I discussed the patients case with DAYANARA Carvalho [facility]. The patient will be further evaluated. Time: 09:30 Administered Medications Sodium Chloride (Nss) 500 mls @ 80 mls/hr IV .Q6H15M [facility] Stop: 07/13/18 18:38 Last Admin: 07/13/18 13:15 Dose: 80 mls/hr Piperacillin Sod/Tazobactam (Sod 3.375 gm/ Dextrose) 115 mls @ 28.75 mls/hr IV Q8H [facility]; Protocol Stop: 07/23/18 15:59 Last Admin: 07/13/18 16:54 Dose: 28.8 mls/hr Miscellaneous (Order Awaiting Action) 1 ea N/A QS [facility] Stop: 08/12/18 15:59 Last Admin: 07/13/18 16:55 Dose: Not Given Discontinued Medications Sodium Chloride (Nss 1000ml) 500 mls @ 999 mls/hr IV .Q31M ONE Stop: 07/13/18 07:57 Last Infusion: 07/13/18 09:07 Dose: 0 mls/hr Admin: 07/13/18 07:58 Dose: 999 mls/hr Piperacillin Sod/Tazobactam Sod (Zosyn) 4.5 gm in 120 mls @ 240 mls/hr IV NOW ONE Stop: 07/13/18 09:53 Last Infusion: 07/13/18 10:10 Dose: 0 mls/hr Admin: 07/13/18 09:35 Dose: 240 mls/hr Medical Decision Making Differential Diagnosis The differential diagnoses considered include sepsis, UTI, intracranial process , UTI, electrolyte or metabolic abnormality. Medical Records Attestation: I reviewed the patient's medical records. Home Medications Current Medication List: was personally reviewed by me Laboratory Data Attestation: I reviewed the patient's lab results. Result diagrams: 07/13/18 07:10 07/13/18 07:10 Lab Results 07/13/18 07/13/18 07/13/18 Range/Units 07:10 07:10 07:10 WBC 14.22 H (4.8-10.8) K/uL RBC 4.01 L (4.7-6.1) M/uL Hgb 12.2 L (14.0-18.0) g/dL Hct 37.8 L (42-52) % MCV 94.3 (80-100) fL MCH 30.4 (25-34) pg MCHC 32.3 (32-36) g/dL RDW Std Deviation 50.8 H (36.4-46.3) fL RDW Coeff of Maurizio 14.8 H (11.5-14.5) % Plt Count 337 (130-400) K/uL MPV 8.5 (7.4-10.4) fL Immature Gran % (Auto) 0.4 % Neut % (Auto) 87.5 % Lymph % (Auto) 5.7 % Vermilion % (Auto) 5.0 % Eos % (Auto) 1.3 % Baso % (Auto) 0.1 % Immature Gran # (Auto) 0.05 H (0.00-0.02) K/uL Neut # (Auto) 12.44 H (1.4-6.5) K/uL Lymph # (Auto) 0.81 L (1.2-3.4) K/uL Vermilion # (Auto) 0.71 H (0.11-0.59) K/uL Eos # (Auto) 0.19 (0-0.5) K/uL Baso # (Auto) 0.02 (0-0.2) K/uL PT 11.8 (9.0-12.0) Seconds INR 1.2 H (0.9-1.1) APTT 25.7 (21.0-31.0) Seconds PTT Ratio 1.0 Sodium 141 (136-145) mmol/L Potassium 4.4 (3.5-5.1) mmol/L Chloride 109 H (98-107) mmol/L Carbon Dioxide 20 L (21-32) mmol/L Anion Gap 12.0 H (3-11) BUN 32 H (7-18) mg/dl Creatinine 1.48 H (0.6-1.4) mg/dl Est Cr Clr Drug Dosing 36.5 ml/min Est GFR ( Amer) 52.5 Est GFR (Non-Af Amer) 45.3 BUN/Creatinine Ratio 21.6 H (10-20) Glucose 90 (70-99) mg/dl POC Glucose (70-99) Lactate (0.4-2.0) mmol/L Calcium 8.7 (8.5-10.1) mg/dl Total Bilirubin 0.7 (0.2-1) mg/dl AST 28 (15-37) U/L ALT 23 (12-78) U/L Alkaline Phosphatase 107 (45-117) U/L Total Protein 7.2 (6.4-8.2) gm/dl Albumin 2.0 L (3.4-5.0) gm/dl Globulin 5.2 H (2.5-4.0) gm/dl Albumin/Globulin Ratio 0.4 L (0.9-2) Lipase 25 L (73-393) U/L Urine Color Urine Appearance (Clear) Urine pH (4.5-7.5) Ur Specific Pease (1.000-1.030) Urine Protein (Negative) Urine Glucose (UA) (Negative) Urine Ketones (Negative) Urine Blood (Negative) Urine Nitrite (Negative) Urine Bilirubin (Negative) Urine Urobilinogen (Negative) Ur Leukocyte Esterase (Negative) Urine WBC (Auto) (0-5) /hpf Urine RBC (Auto) (0-4) /hpf U Hyaline Cast (Auto) (0-5) /lpf U Epithel Cells (Auto) (0-5) /lpf Urine Bacteria (Auto) (Negative) Urine Crystals Calcium Oxalate Crystal (None Prsent) WBC Casts (0) /lpf 07/13/18 07/13/18 07/13/18 Range/Units 07:10 07:48 07:54 WBC (4.8-10.8) K/uL RBC (4.7-6.1) M/uL Hgb (14.0-18.0) g/dL Hct (42-52) % MCV (80-100) fL MCH (25-34) pg MCHC (32-36) g/dL RDW Std Deviation (36.4-46.3) fL RDW Coeff of Maurizio (11.5-14.5) % Plt Count (130-400) K/uL MPV (7.4-10.4) fL Immature Gran % (Auto) % Neut % (Auto) % Lymph % (Auto) % Vermilion % (Auto) % Eos % (Auto) % Baso % (Auto) % Immature Gran # (Auto) (0.00-0.02) K/uL Neut # (Auto) (1.4-6.5) K/uL Lymph # (Auto) (1.2-3.4) K/uL Vermilion # (Auto) (0.11-0.59) K/uL Eos # (Auto) (0-0.5) K/uL Baso # (Auto) (0-0.2) K/uL PT (9.0-12.0) Seconds INR (0.9-1.1) APTT (21.0-31.0) Seconds PTT Ratio Sodium (136-145) mmol/L Potassium (3.5-5.1) mmol/L Chloride (98-107) mmol/L Carbon Dioxide (21-32) mmol/L Anion Gap (3-11) BUN (7-18) mg/dl Creatinine (0.6-1.4) mg/dl Est Cr Clr Drug Dosing ml/min Est GFR ( Amer) Est GFR (Non-Af Amer) BUN/Creatinine Ratio (10-20) Glucose (70-99) mg/dl POC Glucose 79 (70-99) Lactate 1.9 (0.4-2.0) mmol/L Calcium (8.5-10.1) mg/dl Total Bilirubin (0.2-1) mg/dl AST (15-37) U/L ALT (12-78) U/L Alkaline Phosphatase (45-117) U/L Total Protein (6.4-8.2) gm/dl Albumin (3.4-5.0) gm/dl Globulin (2.5-4.0) gm/dl Albumin/Globulin Ratio (0.9-2) Lipase (73-393) U/L Urine Color Dark Yellow Urine Appearance Turbid H (Clear) Urine pH 5.0 (4.5-7.5) Ur Specific Pease 1.025 (1.000-1.030) Urine Protein 2+ H (Negative) Urine Glucose (UA) Negative (Negative) Urine Ketones 1+ H (Negative) Urine Blood 3+ H (Negative) Urine Nitrite Negative (Negative) Urine Bilirubin Negative (Negative) Urine Urobilinogen Negative (Negative) Ur Leukocyte Esterase 1+ H (Negative) Urine WBC (Auto) 10-30 H (0-5) /hpf Urine RBC (Auto) >30 H (0-4) /hpf U Hyaline Cast (Auto) 1-5 (0-5) /lpf U Epithel Cells (Auto) 10-20 H (0-5) /lpf Urine Bacteria (Auto) 1+ H (Negative) Urine Crystals Not Reportable Calcium Oxalate Crystal Present H (None Prsent) WBC Casts 1-5 H (0) /lpf Imaging Data Radiologist's Impression: Radiology results as stated below per my review and the radiologist's interpretation: CT head/brain wo con CLINICAL HISTORY: 77 years-old Male presenting with altered mental status. TECHNIQUE: Multidetector CT imaging of the head was performed without the use of intravenous contrast. IV contrast: None. A dose lowering technique was used consistent with the principles of ALARA (as low as reasonably achievable). COMPARISON: 04/11/2017. CT DOSE (mGy.cm): The estimated cumulative dose is 537.48 mGy.cm. FINDINGS: [employer] topogram: Unremarkable. Ventricles and sulci normal in size. The foramen magnum is incompletely visualized. No hemorrhage. Brain parenchyma normal in appearance with preserved villanueva-white differentiation. No acute territorial infarct. No mass effect or midline shift. No extra-axial fluid collection. Trace mucosal thickening in the right maxillary sinus. Calvarium intact. IMPRESSION: 1. No acute intracranial abnormality. Electronically signed by: Low Cedeno M.D. 07/13/2018 8:13 AM XR chest 1V portable CLINICAL HISTORY: 77 years-old Male presenting with Sepsis. TECHNIQUE: Portable upright AP view of the chest was obtained. COMPARISON: 06/27/2018. FINDINGS: Left subclavian Mediport terminates in the mid SVC. Median sternotomy wires again noted. Atherosclerosis of the aorta. Cardiac silhouette normal in size though the right heart border is obscured. Significant interval increase in right pleural effusion with basilar predominant right lung opacity. Bulbous appearance of the right hilum, possibly vascular. The left lung and pleural space clear. Advanced degenerative changes of the right glenohumeral joint. IMPRESSION: 1. Interval development of right basilar infiltrate. This may represent extensive passive atelectasis in the setting of a small to moderate layering right pleural effusion though an underlying infectious infiltrate/pneumonia cannot be excluded. Electronically signed by: Low Cedeno M.D. 07/13/2018 7:[address] SCAN OF THE ABDOMEN AND PELVIS WITHOUT IV CONTRAST CLINICAL HISTORY: Generalized weakness. Back pain. COMPARISON STUDY: Abdominal CT dated 04/11/2017 and 03/09/2011. Chest CT dated . TECHNIQUE: CT scan of the abdomen and pelvis is performed from the lung bases to the proximal femora. Images are reviewed in the axial, sagittal, and coronal planes. IV contrast was not administered for this examination as per the referring clinician. A dose lowering technique was utilized adhering to the principles of ALARA. CT DOSE: 374.96 mGy.cm FINDINGS: Lung bases: The patient is status post midline sternotomy. The heart is normal in size and without pericardial effusion. The coronary arteries and aortic valve leaflets are densely calcified. Emphysematous change is suspected. No airspace consolidation is seen typical for pneumonia. There is a large right pleural effusion with associated atelectasis. 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 The largest lesion is present on image #78 and measures 3.0 cm. Additional lesions are seen at the anterior right lung base on images #31 and #51. Liver: The unenhanced liver is cirrhotic in morphology and heterogeneous in attenuation. There is nodularity of the hepatic surface contour. Pneumobilia is noted. There is minimal central intrahepatic biliary ductal dilatation. Gallbladder: Surgically absent noting clips in the gallbladder fossa. Spleen: Normal in size and attenuation. Pancreas: The pancreatic head is presumed surgically absent, likely related to previous Whipple procedure. The distal pancreas is markedly atrophic. Adrenal glands: Unremarkable. Kidneys: The unenhanced kidneys are atrophic and without hydronephrosis. There is a 10 mm calculus identified within the right renal pelvis on image #202. There are at least 2 additional small nonobstructing right renal calculi. No left renal calculi are identified. No ureteral stone is seen. Small simple and complex/hyperdense renal cysts measure up to 1.8 cm. Additional subcentimeter cortical hypodensities also likely represent cysts but are too small for definitive characterization. Abdominal vasculature: There is advanced atherosclerotic calcification of the abdominal aorta. There is a 2.9 x 3.1 cm aneurysm of the distal abdominal aorta just above the bifurcation. There is a chronic dissection versus calcified intraluminal thrombus seen within the aneurysm sac on image #251. Bowel: There is mild colonic diverticulosis without CT evidence of acute diverticulitis. Moderate colonic fecal retention is observed. The distal stomach and duodenum appear surgically absent and there is evidence of gastrojejunostomy. This is likely related to previous Whipple procedure. There are postoperative changes from right hemicolectomy with ileocolic anastomosis. No bowel obstruction is seen. The appendix is surgically absent. Peritoneum: There is a moderate volume of abdominopelvic ascites. No intraperitoneal free air is seen there are 2 fat-containing foci identified in the upper abdomen seen on images #121 and #150. These measure up to 2.4 cm and may resent foci of fat necrosis. These are unchanged from 04/11/2017 and of doubtful significance. Lymphadenopathy: None. Pelvic viscera: Evaluation of the pelvis is degraded by streak artifact from a right hip arthroplasty. The bladder is partially decompressed and grossly unremarkable. The prostate appears diminutive and heterogeneous. Fluid is noted along the right inguinal canal. Skeletal structures: The skeletal structures are osteopenic. There are postoperative changes from L3 to L5 spinal fusion. Advanced lumbosacral spondylosis is observed. No lytic or blastic lesions are seen. A right hip arthroplasty is in place. Soft tissues: There is body wall edema. IMPRESSION: 1. 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 This appears to have progressed from 06/19/2018 and the pleural effusion has increased in size. 2. Postoperative changes are consistent with previous Whipple procedure and right colonic resection. No bowel obstruction is identified. 3. The liver is cirrhotic in morphology and heterogeneous in attenuation. 4. There is a moderate volume of abdominopelvic ascites. 5. There is a 10 mm calculus in the right renal pelvis. No hydronephrosis is seen. 6. Additional smaller nonobstructing right renal calculi are identified. 7. There is a 2.9 x 3.1 cm distal abdominal aortic aneurysm. 8. Additional findings as above. Electronically signed by: Ben Alicia M.D. 07/13/2018 9:11 AM ECG Data Attestation: I personally reviewed and interpreted this ECG as follows: Indication: altered mental status Rate (beats per minute): 76 Rhythm: normal sinus (poor baseline) Findings: + other (non-specific T-wave abnormality) Comparison ECG Date: from (06/19/2018) Change: no significant change Blood Pressure Blood Pressure Findings: Elevated blood pressure Blood Pressure Disposition: further management by hospitalist [facility] Narrative This patient comes in as described above. He was placed in room A12. Here for treatment and evaluation of confusion for about a week. He does have a history of recurrent pancreatic cancer. He has had a recent paracentesis as well as pleuracentesis for fluid. He has had no fever. He has had blood in his urine. His is concerned that he could have a UTI. He is currently on no chemotherapy. IV access established. Tic workup was obtained he has stable vital signs here he was hydrated normal saline. Multiple blood testing was obtained. I did do a CAT scan of his head as well as abdomen and pelvis. I wanted to make sure there were no brain metastases and also rule out any obstructive uropathy as hehas had blood in his urine. CAT scan of the head and abdomen were unremarkable with the exception of versus metastatic disease in the right lung base. He was given IV antibiotics with IV Zosyn. Urinalysis is also pending. He has no significant electrolyte or metabolic abnormalities. Given his confusion and possible infection and recurrence of cancer, I do think he needs to be admitted/observe and have consult the hospitalist to see him in the ER for these measures. Impression & Plan Altered mental status, Pneumonia, Pancreatic cancer Discharge Plan Visit Data *Final* Discharge Date/Time: 07/13/18 11:27 Chief Complaint: Confusion ED Provider: Edilberto Hall Discharge Problem: Altered mental status, Pneumonia, Pancreatic cancer Patient Disposition: Admitted As Inpatient Discharge Instructions Interventions: ED Discharge Assessment Last Done: 07/13/18 11:27 The scribe's documentation has been prepared under my direction and personally reviewed by me in its entirety. I confirm that the note above accurately reflects all work, treatment, procedures, and medical decision making performed by me.
--- NOTE | 2018-07-13 07:59 | XRay Report ---
XR chest 1V portable CLINICAL HISTORY: 77 years-old Male presenting with Sepsis. TECHNIQUE: Portable upright AP view of the chest was obtained. COMPARISON: 06/27/2018. FINDINGS: Left subclavian Mediport terminates in the mid SVC. Median sternotomy wires again noted. Atherosclero sis of the aorta. Cardiac silhouette normal in size though the right heart border is obscured. Signif icant interval increase in right pleural effusion with basilar predominant right lung opacity. Bulbou s appearance of the right hilum, possibly vascular. The left lung and pleural space clear. Advanced d egenerative changes of the right glenohumeral joint. IMPRESSION: 1. Interval development of right basilar infiltrate. This may represent extensive passive atelectasi s in the setting of a small to moderate layering right pleural effusion though an underlying infectio us infiltrate/pneumonia cannot be excluded. Electronically signed by: Low Cedeno M.D. 07/13/2018 7:58 AM
--- NOTE | 2018-07-13 08:15 | CT Scan Report ---
CT head/brain wo con CLINICAL HISTORY: 77 years-old Male presenting with altered mental status. TECHNIQUE: Multidetector CT imaging of the head was performed without the use of intravenous contrast . IV contrast: None. A dose lowering technique was used consistent with the principles of ALARA (as l ow as reasonably achievable). COMPARISON: 04/11/2017. CT DOSE (mGy.cm): The estimated cumulative dose is 537.48 mGy.cm. FINDINGS: Direct Marketing Specialist topogram: Unremarkable. Ventricles and sulci normal in size. The foramen magnum is incompletely visualized. No hemorrhage. Br ain parenchyma normal in appearance with preserved villanueva-white differentiation. No acute territorial i nfarct. No mass effect or midline shift. No extra-axial fluid collection. Trace mucosal thickening in the right maxillary sinus. Calvarium intact. IMPRESSION: 1. No acute intracranial abnormality. Electronically signed by: Low Cedeno M.D. 07/13/2018 8:13 AM
--- NOTE | 2018-07-13 09:12 | CT Scan Report ---
CT SCAN OF THE ABDOMEN AND PELVIS WITHOUT IV CONTRAST CLINICAL HISTORY: Generalized weakness. Back pain. COMPARISON STUDY: Abdominal CT dated 04/11/2017 and 03/09/2011. Chest CT dated 06/19/2018. TECHNIQUE: CT scan of the abdomen and pelvis is performed from the lung bases to the proximal femora. Images are reviewed in the axial, sagittal, and coronal planes. IV contrast was not administered for this examination as per the referring clinician. A dose lowering technique was utilized adhering to the principles of ALARA. CT DOSE: 374.96 mGy.cm FINDINGS: Lung bases: The patient is status post midline sternotomy. The heart is normal in size and without pe ricardial effusion. The coronary arteries and aortic valve leaflets are densely calcified. Emphysemat ous change is suspected. No airspace consolidation is seen typical for pneumonia. There is a large ri ght pleural effusion with associated atelectasis. 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 The largest lesion is present on image #78 and measures 3.0 cm. Additional l esions are seen at the anterior right lung base on images #31 and #51. Liver: The unenhanced liver is cirrhotic in morphology and heterogeneous in attenuation. There is nod ularity of the hepatic surface contour. Pneumobilia is noted. There is minimal central intrahepatic b iliary ductal dilatation. Gallbladder: Surgically absent noting clips in the gallbladder fossa. Spleen: Normal in size and attenuation. Pancreas: The pancreatic head is presumed surgically absent, likely related to previous Whipple proce dure. The distal pancreas is markedly atrophic. Adrenal glands: Unremarkable. Kidneys: The unenhanced kidneys are atrophic and without hydronephrosis. There is a 10 mm calculus id entified within the right renal pelvis on image #202. There are at least 2 additional small nonobstru cting right renal calculi. No left renal calculi are identified. No ureteral stone is seen. Small sim ple and complex/hyperdense renal cysts measure up to 1.8 cm. Additional subcentimeter cortical hypode nsities also likely represent cysts but are too small for definitive characterization. Abdominal vasculature: There is advanced atherosclerotic calcification of the abdominal aorta. There is a 2.9 x 3.1 cm aneurysm of the distal abdominal aorta just above the bifurcation. There is a chron ic dissection versus calcified intraluminal thrombus seen within the aneurysm sac on image #251. Bowel: There is mild colonic diverticulosis without CT evidence of acute diverticulitis. Moderate col onic fecal retention is observed. The distal stomach and duodenum appear surgically absent and there is evidence of gastrojejunostomy. This is likely related to previous Whipple procedure. There are pos toperative changes from right hemicolectomy with ileocolic anastomosis. No bowel obstruction is seen. The appendix is surgically absent. Peritoneum: There is a moderate volume of abdominopelvic ascites. No intraperitoneal free air is seen there are 2 fat-containing foci identified in the upper abdomen seen on images #121 and #150. These measure up to 2.4 cm and may resent foci of fat necrosis. These are unchanged from 04/11/2017 and of d oubtful significance. Lymphadenopathy: None. Pelvic viscera: Evaluation of the pelvis is degraded by streak artifact from a right hip arthroplasty . The bladder is partially decompressed and grossly unremarkable. The prostate appears diminutive and heterogeneous. Fluid is noted along the right inguinal canal. Skeletal structures: The skeletal structures are osteopenic. There are postoperative changes from L3 to L5 spinal fusion. Advanced lumbosacral spondylosis is observed. No lytic or blastic lesions are se en. A right hip arthroplasty is in place. Soft tissues: There is body wall edema. IMPRESSION: 1. There is a large right pleural effusion with evidence of metastatic pleural disease at the right l luis base. This appears to have progressed from 06/19/2018 and the pleural effusion has increased in s ize. 2. Postoperative changes are consistent with previous Whipple procedure and right colonic resection. No bowel obstruction is identified. 3. The liver is cirrhotic in morphology and heterogeneous in attenuation. 4. There is a moderate volume of abdominopelvic ascites. 5. There is a 10 mm calculus in the right renal pelvis. No hydronephrosis is seen. 6. Additional smaller nonobstructing right renal calculi are identified. 7. There is a 2.9 x 3.1 cm distal abdominal aortic aneurysm. 8. Additional findings as above. Electronically signed by: Ben Alicia M.D. 07/13/2018 9:11 AM
[2018-07-13] MEDS ORDERED: PIPERACILL/TAZOBAC CONSULT ACTIVE PRN (09:24)
[2018-07-13] MEDS ORDERED: PIPERACILLIN/TAZOBACTAM 4.5 GM/120 ML BAG IV ONE (09:24)
[2018-07-13 09:47] LABS: Appearance Urine Turbid (Clear); Color Urine Dark Yellow; Glucose Urine UA Negative (Negative); Ketones Urine 1+ (Negative); Leukocyte Esterase Urine 1+ (Negative); Nitrite Urine Negative (Negative); Protein Urine 2+ (Negative); Specific Gravity Urine 1.025 (1.000-1.030); Urobilinogen Urine Negative (Negative)
[2018-07-13 09:50] LABS: Bilirubin Urine Negative (Negative); Ictotest Urine Negative (Negative)
[2018-07-13 09:58] LABS: Calcium Oxalate Crystals Urine Present (None Prsent)
[2018-07-13 10:01] LABS: Bacteria Urine Automated 1+ (Negative)
--- NOTE | 2018-07-13 10:50 | History & Physical Report ---
Date of Service July 13, 2018 Assessment & Plan (1) Altered mental status: This is a 77yo M with a PMH of pancreatic cancer s/p Whipple and chemotherapy with possible metastasis, CKD III, CAD (s/p CABG),chronic systolic HF (EF: 40% on TTE 2017), HTN, chronic anemia, h/o stable AAA and other medical problems listed below who presents with confusion and progressive generalized weakness x 1 week and was found to have a UTI. -Progressive confusion, generalized weakness x 1 week, fall this AM -CT head without acute abnormality -Likely metabolic encephalopathy in setting of UTI and possible pneumonia on CXR -Gentle IV fluid resuscitation -Expect improvement with antibiotics (2) Complicated UTI (urinary tract infection): Urinalysis with evidence of possible infection. Started empirically on Zosyn, follow urine culture -Also presence of hematuria. Hemoglobin stable at 12 but continue to monitor H/ H (3) Generalized weakness: In the setting of infection, dehydration, likely metastatic pancreatic cancer -Orthostatic vitals -Gentle IV fluid resuscitation -PT/OT evaluation and conditioning for generalized weakness (4) Pancreatic cancer: S/P Whipple procedure and chemotherapy. Follows with Dr. Gustafson -New abnormal imaging from 06/27 concerning for recurrence/metastatic cancer with ascites and pleural mets/effusion -Underwent a US guided paracentesis and pleural fluid was reported to have malignant cells consistent with metastatic adenocarcioma -CXR with interval development of right basilar infiltrate. This may represent extensive passive atelectasis in the setting of a small to moderate layering right pleural effusion though an underlying infectious infiltrate/pneumonia cannot be excluded -Poor prognosis was discussed during most recent heme/onc clinic visit * Patient/ are still deciding between palliative chemo with gemcitabine vs palliative care with option of hospice -Pain control (5) Hypertension: Normotensive -Continue amlodipine, metoprolol, lisinopril (6) CAD (coronary artery disease): Stable. No chest pain. -Continue aspirin, statin (7) CKD (chronic kidney disease) stage 3, GFR 30-59 ml/min: Kidney function at baseline (Cr 1.3-1.4, GFR 50-55) -Gentle IV fluid resuscitation -Avoid nephrotic agents when able DVT Ppx: SCDs. No pharmacologic agents in setting of active hematuria Code status: DNR per discussion with patient and PCP: Zoie Dispo: Admitted to med/surg. Discharge planning ordered Patient seen in collaboration with Dr. Osman. Please see addendum. History of Present Illness Chief Complaint: AMS Primary Care Provider: Josue Lino MD This is a 77yo M with a PMH of pancreatic cancer s/p Whipple and chemotherapy with possible metastasis, CKD III, CAD (s/p CABG),chronic systolic HF (EF: 40% on TTE 2017), HTN, chronic anemia, h/o stable AAA and other medical problems listed below who presents with confusion and progressive generalized weakness x 1 week. Patient was ambulating from bathroom this morning and due to confusion, forgot to wait for help from or use his walker, and ended up falling. States that he felt lightheaded prior to fall but denies dizziness, chest pain or SOB. Poor PO intake for the past week due to decreased appetite. Also endorses blood in urine since yesterday. Denies fever, chills, headache, nausea , vomiting, melena or hematochezia. Chronic RUQ abdominal pain. Was recently seen by Dr. Gustafson in June for a follow-up visit and was found to have a new abnormal imaging concerning for recurrence/metastatic cancer with ascites and pleural mets/effusion. Underwent a US guided paracentesis and pleural fluid was reported to have malignant cells consistent with metastatic adenocarcioma. Discussed poor prognosis during clinic visit and patient/ are still deciding between palliative chemo with gemcitabine or palliative care with option of hospice. Allergies Allergy/AdvReac Type Severity Reaction Status Date / Time No Known Allergies Allergy Verified 07/13/18 08:26 Home Medications Home Medications Medication Instructions Recorded Confirmed Type docusate sodium 100 mg PO DAILY PRN 06/19/18 07/13/18 History nchdqc-uodulxpe-bodcrgu 1 tab PO QID 06/19/18 07/13/18 History ondansetron HCl 4 mg PO Q8H PRN 06/19/18 07/13/18 History oxycodone-acetaminophen 1 tab PO Q4H PRN 06/19/18 07/13/18 History pantoprazole 40 mg PO QAM 06/19/18 07/13/18 History sertraline 25 mg PO QAM 06/19/18 07/13/18 History amlodipine 10 mg PO DAILY 07/13/18 07/13/18 History aspirin 81 mg PO QAM 07/13/18 07/13/18 History atorvastatin 40 mg PO QAM 07/13/18 07/13/18 History lisinopril 40 mg PO DAILY 07/13/18 07/13/18 History metoprolol succinate 50 mg PO DAILY 07/13/18 07/13/18 History guaifenesin 200 mg PO Q6H PRN #30 ea 07/17/18 Rx ipratropium-albuterol 3 ml NEB Q6H PRN 30 Days #30 ml 07/17/18 Rx Past Med/Surg History Medical History CAD (coronary artery disease) (Chronic) Hypertension (Chronic) Osteoarthritis of right hip (Chronic) CKD (chronic kidney disease) stage 3, GFR 30-59 ml/min (Chronic) Acute kidney injury (Acute) Dehydration (Acute) Pancreatic cancer (Chronic 08/22/15) "Painless jaundice, weight loss, diarrhea Abnormal ultrasound right upper quadrant 08/20/2015 dilated intra-and extrahepatic bile ducts Status post MRCP 08/20/2015 Status post MRI of the pancreas 08/21/2015 mass head of the pancreas 4 x 2 cm Status post ERCP with biopsies 08/22/2015 Adenocarcinoma moderately differentiated of the pancreas Status post upper EUS 08/29/2015 Stage uT3 uN1 Status post Whipple procedure 09/15/2015 Stage pT3 pN1 M0 Status post completion of radiation therapy 01/01/2016 received 5040 cGy combined with Xeloda " Surgical History H/O two vessel coronary artery bypass graft (Chronic) "09/23/1998" H/O total hip arthroplasty (Chronic) "11/2013" H/O colectomy (Chronic) "h/o partial colectomy with colostomy 03/2014 and later reversal " H/O ventral hernia repair (Chronic) "with mesh " Family History Other Cancer HTN (hypertension) Heart disease Kidney disease Social History Current Living Situation: Spouse Other Information That Helps Us Care for You: No Feels Safe at Home: Yes Safety Concerns: Feels Safe At This Time Smoking Status: Former smoker Second Hand Exposure: No Hx Alcohol Use: No Hx Substance Use: No Beliefs That Will Affect Care: None Preferred Language: [place] Review of Systems All systems reviewed & are unremarkable except as noted in HPI & below Physical Exam 2 Vital Signs (Past 24 Hours): Last Vital Signs Temp 36.5 C 07/13/18 06:50 Pulse 64 07/13/18 09:30 Resp 24 07/13/18 09:30 BP 137/74 07/13/18 09:30 Pulse Ox 95 07/13/18 09:15 Physical Exam: General Appearance: WD/WN, no apparent distress, chronically ill appearing, pleasantly confused Head: normocephalic, atraumatic Eyes: normal inspection, PERRL, EOMI ENT: hearing grossly normal, pharynx normal (dry mucous membranes) Neck: supple, no JVD, no adenopathy Respiratory/Chest: Rhonchi throughout lung mariee with rales at R lung base. No respiratory distress or accessory muscle use Cardiovascular: regular rate, rhythm, no murmur, normal peripheral pulses Abdomen/GI: normal bowel sounds, soft, tender to palpation in RUQ (chronic) Extremities/Musculoskelatal: normal inspection, no calf tenderness, normal capillary refill, no pedal edema Neurologic/Psych: alert, normal mood/affect, oriented x 3 but intermittently confused Skin: normal color, warm/dry Results & Data Laboratory Results Short CBC 07/13/18 Range/Units 07:10 WBC 14.22 H (4.8-10.8) K/uL Hgb 12.2 L (14.0-18.0) g/dL Hct 37.8 L (42-52) % Plt Count 337 (130-400) K/uL BMP 07/13/18 07:10 Sodium 141 Potassium 4.4 Chloride 109 H Carbon Dioxide 20 L BUN 32 H Creatinine 1.48 H Glucose 90 Calcium 8.7 Liver Function 07/13/18 Range/Units 07:10 Total Bilirubin 0.7 (0.2-1) mg/dl AST 28 (15-37) U/L ALT 23 (12-78) U/L Alkaline Phosphatase 107 (45-117) U/L Albumin 2.0 L (3.4-5.0) gm/dl Urine 07/13/18 Range/Units 07:10 Urine Color Dark Yellow Urine Appearance Turbid H (Clear) Urine pH 5.0 (4.5-7.5) Ur Specific [place] 1.025 (1.000-1.030) Urine Protein 2+ H (Negative) Urine Glucose (UA) Negative (Negative) Diagnostic Findings CT head: IMPRESSION: 1. No acute intracranial abnormality. CXR: IMPRESSION: 1. Interval development of right basilar infiltrate. This may represent extensive passive atelectasis in the setting of a small to moderate layering right pleural effusion though an underlying infectious infiltrate/pneumonia cannot be excluded. CT abd/pelvis: IMPRESSION: 1. 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 This appears to have progressed from 06/19/2018 and the pleural effusion has increased in size. 2. Postoperative changes are consistent with previous Whipple procedure and right colonic resection. No bowel obstruction is identified. 3. The liver is cirrhotic in morphology and heterogeneous in attenuation. 4. There is a moderate volume of abdominopelvic ascites. 5. There is a 10 mm calculus in the right renal pelvis. No hydronephrosis is seen. 6. Additional smaller nonobstructing right renal calculi are identified. 7. There is a 2.9 x 3.1 cm distal abdominal aortic aneurysm. 8. Additional findings as above. Code Status & VTE Plan Code Status DNR per discussion with patient and VTE Prophylaxis Plan VTE Prophylaxis will be ordered: Yes Supervising Physician Co-Signing Physician Notes I saw this patient with the physician press assistant, I participated in the history, physical, review of systems, and physical exam. I reviewed the medications with the patient and the physician press assistant and helped reconcile the medications. I helped take a detailed family and social history as well. I formulated the assessment and plan personally with the physician press assistant and went over it with the patient. MD Jacqui _ (1) Pancreatic cancer Pancreatic malignancy location: (2) Altered mental status Altered mental status type: Coma depth: Coma timing:
[2018-07-13] MEDS ORDERED: SODIUM CHLORIDE 0.9% 500 ML IV SCH (12:24)
[2018-07-13] MEDS ORDERED: ONDANSETRON INJ 2 MG/ML 2 ML VIAL IV PRN (12:24)
[2018-07-13] MEDS ORDERED: ENOXAPARIN INJ 30 MG/0.3 ML SYR SQ SCH (12:24)
[2018-07-13] MEDS ORDERED: POLYETHYLENE (MIRALAX) 17 GM PACK PO PRN (12:24)
[2018-07-13] MEDS ORDERED: ONDANSETRON 4 MG TAB PO PRN (12:24)
[2018-07-13] MEDS ORDERED: ACETAMINOPHEN 325 MG TAB PO PRN (12:24)
[2018-07-13] MEDS ORDERED: DOCUSATE SODIUM 100 MG CAP PO PRN (12:24)
[2018-07-13] MEDS: PIPERACILLIN/TAZOBACTAM 3.375 GM in DEXTROSE 5% 100 ML IV SCH ×2 (16:54→23:57)
[2018-07-14] MEDS: HEPARIN 100 UNIT/ML 5ML FLUSH FLUSH PRN ×2 (03:53→11:47)
[2018-07-14] MEDS: OXYCODONE/ACETAMINOPHEN 5mg/325mg TAB PO PRN ×2 (05:35→10:32)
[2018-07-14 05:38] LABS: Hematocrit (blood only) 31.4 % (42-52); Hemoglobin 10.1 g/dL (14.0-18.0); Mean Corpuscular Hgb Conc 32.2 g/dL (32-36); Mean Corpuscular Volume 93.5 fL (80-100); Mean Platelet Volume 8.6 fL (7.4-10.4); Platelet Count 298 K/uL (130-400); RDW Coefficient of Variation 14.9 % (11.5-14.5); RDW Standard Deviation 50.4 fL (36.4-46.3); Red Blood Count 3.36 M/uL (4.7-6.1); White Blood Count 13.87 K/uL (4.8-10.8)
[2018-07-14 06:21] LABS: BUN Creatinine Ratio 24.5 (10-20); Calcium 7.8 mg/dl (8.5-10.1); Creatinine Clr Calc Pharmacy 38.9 ml/min; Est GFR (African American) 56.7; Est GFR (Non-African American) 48.9; Potassium 3.6 mmol/L (3.5-5.1)
[2018-07-14] MEDS: METOPROLOL SUCC 50MG EXT REL TAB PO SCH (07:44)
[2018-07-14] MEDS: PANTOprazole 40 MG TAB PO SCH (07:44)
[2018-07-14] MEDS: AMLODIPINE BESYLATE 5 MG TAB PO SCH (07:44)
[2018-07-14] MEDS: SERTRALINE HCL 50 MG TABLET PO SCH (07:45)
[2018-07-14] MEDS: LISINOPRIL 40 MG TAB PO SCH (07:45)
[2018-07-14] MEDS: ASPIRIN 81 MG ECTAB PO SCH (07:46)
[2018-07-14] MEDS: PIPERACILLIN/TAZOBACTAM 3.375 GM in DEXTROSE 5% 100 ML IV SCH ×3 (07:46→23:26)
[2018-07-14] MEDS: ATORVASTATIN 40 MG TAB PO SCH (07:46)
--- NOTE | 2018-07-14 10:51 | Hospitalist Progress Note ---
Date of Service July 14, 2018 Assessment & Plan (1) Altered mental status: This is a 77yo M with a PMH of pancreatic cancer s/p Whipple and chemotherapy with possible metastasis, CKD III, CAD (s/p CABG),chronic systolic HF (EF: 40% on TTE 2017), HTN, chronic anemia, h/o stable AAA and other medical problems listed below who presents with confusion and progressive generalized weakness x 1 week and was found to have a UTI. -Progressive confusion, generalized weakness x 1 week, fall this AM -CT head without acute abnormality -Likely metabolic encephalopathy in setting of UTI and possible pneumonia on CXR -Gentle IV fluid resuscitation -Expect improvement with antibiotics (2) Complicated UTI (urinary tract infection): Urinalysis with evidence of possible infection -Started empirically on Zosyn. Urine culture pending -Also presence of hematuria. Hemoglobin decreased to 10 (from 12) -Continue to monitor H/H (3) Generalized weakness: In the setting of infection, dehydration, likely metastatic pancreatic cancer -Gentle IV fluid resuscitation -PT/OT evaluation and conditioning for generalized weakness (4) Pancreatic cancer: S/P Whipple procedure and chemotherapy. Follows with Dr. Gustafson -New abnormal imaging from 06/27 concerning for recurrence/metastatic cancer with ascites and pleural mets/effusion -Underwent a US guided thoracentesis and pleural fluid was reported to have malignant cells consistent with metastatic adenocarcioma -CXR with interval development of right basilar infiltrate. This may represent extensive passive atelectasis in the setting of a small to moderate layering right pleural effusion though an underlying infectious infiltrate/pneumonia cannot be excluded -May benefit from therapeutic thoracentesis. Need to first discuss goals of care with -Poor prognosis was discussed during most recent heme/onc clinic visit * Patient/ are still deciding between palliative chemo with gemcitabine vs palliative care with option of hospice -Pain control (5) Hypertension: Normotensive -Continue amlodipine, metoprolol, lisinopril (6) CAD (coronary artery disease): Stable. No chest pain. -Continue aspirin, statin (7) CKD (chronic kidney disease) stage 3, GFR 30-59 ml/min: Kidney function at baseline (Cr 1.3-1.4, GFR 50-55) -Gentle IV fluid resuscitation -Avoid nephrotic agents when able DVT Ppx: SCDs. No pharmacologic agents in setting of active hematuria Code status: DNR per discussion with patient and PCP: Zoie Dispo: Admitted to med/surg. Discharge planning ordered Patient seen in collaboration with Dr. Osman. Please see addendum. Supervising Physician Co-Signing Physician Notes Pt was seen seen and examined. Agreed with Christine NICHOLE exam, assessment and Plan. His respiratory status is unchanged. CT on admission large right pleural effusion with evidence of metastatic pleural disease at the right lung base. This appears to have progressed from 06/19/2018 and the pleural effusion has increased in size. Will consult thoracic surgeon Dr. Hernandez for possible thoracentesis. Continue IV abx for now. PT/OT. Continue monitor closely. MD Jacqui Subjective Seen and examined. Patient is resting comfortably, still confused. Denies lightheadedness, chest pain. Has SOB with exertion and productive cough. Also still with dysuria. Denies hematuria. Physical Exam 2 Vital Signs (Past 24 Hours): Last Vital Signs Temp 36.3 C L 07/14/18 07:30 Pulse 56 L 07/14/18 07:30 Resp 18 07/14/18 07:30 BP 127/75 07/14/18 07:30 Pulse Ox 100 07/14/18 07:30 Physical Exam: General Appearance: WD/WN, no apparent distress, chronically ill appearing, pleasantly confused Head: normocephalic, atraumatic Eyes: normal inspection, PERRL, EOMI ENT: hearing grossly normal, pharynx normal (dry mucous membranes) Neck: supple, no JVD, no adenopathy Respiratory/Chest: Rhonchi throughout lung mariee with rales at L lung base, R lung based with decreased lung sounds. No respiratory distress or accessory muscle use Cardiovascular: regular rate, rhythm, no murmur, normal peripheral pulses Abdomen/GI: normal bowel sounds, soft, tender to palpation in RUQ (chronic) Extremities/Musculoskelatal: normal inspection, no calf tenderness, normal capillary refill, no pedal edema Neurologic/Psych: alert, normal mood/affect, oriented x 3 but intermittently confused Skin: normal color, warm/dry Results & Data Laboratory Results Short CBC 07/14/18 Range/Units 05:18 WBC 13.87 H (4.8-10.8) K/uL Hgb 10.1 L (14.0-18.0) g/dL Hct 31.4 L (42-52) % Plt Count 298 (130-400) K/uL BMP 07/14/18 05:18 Sodium 140 Potassium 3.6 D Chloride 111 H Carbon Dioxide 21 BUN 34 H Creatinine 1.39 Glucose 90 Calcium 7.8 L _ (1) Pancreatic cancer Pancreatic malignancy location: (2) Altered mental status Altered mental status type: Coma depth: Coma timing:
[2018-07-14 16:06] LABS: Hematocrit (blood only) 30.4 % (42-52)
[2018-07-14] MEDS: ALBUT/IPRATROP 3MG/0.5MG NEB 3 ML VIAL NEB SCH ×2 (16:44→19:19)
[2018-07-15 05:52] LABS: Mean Corpuscular Hgb Conc 32.3 g/dL (32-36); Mean Corpuscular Volume 93.9 fL (80-100); Mean Platelet Volume 8.8 fL (7.4-10.4); Platelet Count 291 K/uL (130-400); RDW Standard Deviation 51.1 fL (36.4-46.3)
[2018-07-15 06:23] LABS: BUN Creatinine Ratio 24.7 (10-20); Calcium 7.8 mg/dl (8.5-10.1); Creatinine Clr Calc Pharmacy 39.4 ml/min; Est GFR (African American) 60.9; Est GFR (Non-African American) 52.5; Potassium 3.3 mmol/L (3.5-5.1)
[2018-07-15] MEDS: ALBUT/IPRATROP 3MG/0.5MG NEB 3 ML VIAL NEB SCH ×4 (07:02→19:22)
[2018-07-15] MEDS: LISINOPRIL 40 MG TAB PO SCH (08:11)
[2018-07-15] MEDS: ATORVASTATIN 40 MG TAB PO SCH (08:11)
[2018-07-15] MEDS: AMLODIPINE BESYLATE 5 MG TAB PO SCH (08:13)
[2018-07-15] MEDS: PANTOprazole 40 MG TAB PO SCH (08:13)
[2018-07-15] MEDS: METOPROLOL SUCC 50MG EXT REL TAB PO SCH (08:13)
[2018-07-15] MEDS: SERTRALINE HCL 50 MG TABLET PO SCH (08:14)
[2018-07-15] MEDS: ASPIRIN 81 MG ECTAB PO SCH (08:14)
[2018-07-15] MEDS: PIPERACILLIN/TAZOBACTAM 3.375 GM in DEXTROSE 5% 100 ML IV SCH ×2 (08:15→15:34)
[2018-07-15] MEDS ORDERED: POTASSIUM CHLORIDE 10 MEQ TABCR PO STA (08:22)
--- NOTE | 2018-07-15 09:58 | Post Operative Brief Note ---
Immediate Post Op Note v1 Date of Surgery July 15, 2018 Pre & Post Diagnosis malignant pleural effusion (recurrent) Procedure Ultrasound guided right thoracentesis Surgeon Pato Hernandez MD, FACS [employer] Feeder none Estimated Blood Loss 0 Findings Consistent with Post-Op Diagnosis
--- NOTE | 2018-07-15 10:00 | Post Operative Brief Note ---
Immediate Post Op Note v1 Date of Surgery July 15, 2018 Pre & Post Diagnosis Malignant right pleural effusion Procedure Ultrasounf-guided right thoracentesis Surgeon Pato Hernandez MD, FACS [employer] none Estimated Blood Loss 0 Findings Consistent with Post-Op Diagnosis Specimens Drained 1,600 cc's of rust colored fluid
--- NOTE | 2018-07-15 10:08 | XRay Report ---
XR chest 1V portable CLINICAL HISTORY: thoracentesis pleural effusion COMPARISON STUDY: 07/13/2018 FINDINGS: No evidence for pneumothorax post right thoracentesis. Small residual pleural effusion righ t base improved from the prior exam. IMPRESSION: No pneumothorax post right thoracentesis. The above report was generated using voice recognition software. It may contain grammatical, syntax or spelling errors. Electronically signed by: Linwood Baez M.D. 07/15/2018 10:07 AM
--- NOTE | 2018-07-15 11:06 | Consultation Report ---
DATE OF CONSULTATION: 07/15/2018 REASON FOR CONSULTATION: Recurrent malignant right pleural effusion. HISTORY OF PRESENT ILLNESS: Clarke Lisa is a 77-year-old male who underwent a pancreaticoduodenectomy for a carcinoma. He is followed by Dr. Rachael Gustafson. He did well initially; however, he was found to have recurrent disease. I performed a thoracentesis under ultrasound guidance on 06/27/2018 and drained him for a significant amount of fluid. He had relief from this; however, this was metastatic. The patient and his had discussions with Dr. Gustafson about whether or not to proceed with palliative care with chemotherapy or simply hospice. He became quite confused and was admitted to [facility] on 07/13/2018 with a change in mental status. CT scan of his head showed no evidence of obvious metastases. I have been asked to comment on this pleural effusion. It is not very impressive on x-ray although it has definitely increased since we tapped him on 06/27/2018; however, a CT scan of his abdomen showed a large homogenous effusion with compression of the right lower lobe. I discussed this with the patient and his . I have been asked to comment on this fluid. PAST MEDICAL HISTORY: 1. Coronary artery disease. 2. Complicated urinary tract infection. 3. Pancreatic cancer. 4. Change in mental status. 5. Chronic renal insufficiency. 6. Acute dehydration. PAST SURGICAL HISTORY: 1. Coronary artery bypass grafting. 2. Status post right thoracentesis. 3. Total hip arthroplasty. 4. Colectomy. 5. Pancreaticoduodenectomy. 6. Ventral hernia repair. MEDICATIONS: 1. Inhalers. 2. Amlodipine. 3. Atorvastatin. 4. Aspirin. 5. Metoprolol. 6. Lisinopril. 7. Oxycodone. 8. Pantoprazole. 9. Zosyn. 10. MiraLax. 11. Sertraline. 12. Potassium supplements. ALLERGIES: No known drug allergies. SOCIAL HISTORY: Patient lives with his who is very supportive. He did not smoke cigarettes although he smoked in the past. He does not use alcohol. FAMILY MEDICAL HISTORY: Includes renal insufficiency, coronary artery disease, malignancies, and hypertension. REVIEW OF SYSTEMS: Patient has continued to lose weight. He has had decreased appetite. He has been short of breath. He has had some hematuria. He denies fevers or chills but has had acute change in his mental status although a CT scan of his brain was unremarkable. He has been quite weak. He has difficulty walking. He has fallen. He denies vertigo, but he does have what appears to be postural hypotension. This morning he is complaining of shortness of breath. Rest of his review of systems had no new abnormalities. PHYSICAL EXAMINATION: GENERAL: This is a thin male with temporal wasting, who is awake and alert. He also is more oriented although while he is oriented to place and person, not to date or current events. HEENT: He has temporal wasting. His extraocular movements are intact. His sclerae are pale. He has no nasolabial flattening. Tongue is midline. His oral mucosa is dry. NECK: Supple. I detect no supraclavicular or cervical lymphadenopathy. LUNGS: He has decreased breath sounds in the right base with a few rhonchi. He also has some upper airway rhonchi, which clear with cough. CARDIOVASCULAR: He has a regular rate and rhythm of his heart. GASTROINTESTINAL: His abdomen is palpated, and he has some tenderness in his right upper quadrant, but his incisions are all well healed. He does have bowel sounds. EXTREMITIES: He has no edema peripherally. He has no joint effusions. NEUROLOGICAL: He is moving everything, but he is oriented x2. ASSESSMENT AND PLAN: Recurrent malignant right pleural effusion. I have discussed this with the patient's and patient. A PleurX catheter could be inserted; however, I am concerned about this patient's ultimate course. I think he is nearing end of life. I am a bit hesitant to put a PleurX catheter in as I think that this could be more problematic. Will tap him today and see how he does. If he indeed becomes a hospice patient, I would probably hold off with the PleurX.
--- NOTE | 2018-07-15 11:41 | Operative Report ---
DATE OF OPERATION: 07/15/2018 PREOPERATIVE DIAGNOSES: 1. Recurrent right malignant pleural effusion. 2. Metastatic adenocarcinoma of the pancreas. 3. Status post Whipple procedure. POSTOPERATIVE DIAGNOSES: 1. Recurrent right malignant pleural effusion. 2. Metastatic adenocarcinoma of the pancreas. 3. Status post Whipple procedure. PROCEDURE: Ultrasound guided thoracentesis at bedside. SURGEON: Pato Hernandez MD ANESTHESIA: Local. SPECIFICS OF PROCEDURE: I had a long discussion with the patient and his . I had performed this procedure about 3 weeks ago, and he did improve subjectively. The fluid has reaccumulated. He was admitted with mental status changes, and while he does not exhibit signs and symptoms of an obvious infection, I want to make sure that he does not have organisms in this pleural fluid. I also think it would provide symptomatic relief as he is complaining of shortness of breath. On the morning of 07/15/2018 at the bedside, I performed an ultrasound-guided right thoracentesis without difficulty and drained approximately 1600 mL of a rust colored fluid. He started having some reexpansion pain, so we stopped. He tolerated it well and was much more comfortable after we finished, and he was laid back in bed. Chest x-ray is pending. DESCRIPTION OF PROCEDURE: Patient was sat upright. He leaned a bit forward on to a bedside table with a pillow, and an ultrasound was used to jocelyn an area in his posterior right back. He had a large amount of fluid. He was prepped and draped in the usual sterile fashion. Appropriate timeout was called. A 25 gauge needle with 1% Xylocaine was used to anesthetize the skin and subcutaneous tissues all the way down to the pleura as the patient was quite thin. I then removed this needle and put a large bore needle, went back through this weal and got free flowing fluid. A guidewire was inserted in the needle and the needle removed. A dilator was slid over the guidewire gently to enlarge insertion tract and removed, and a triple lumen catheter slid into 17 cm. 1600 mL of fluid was drained off without difficulty. The pH was 7.40. It is serous in nature. He has a known malignant effusion. When he developed reexpansion pain, we stopped. We did not drain him completely dry. He tolerated it well, and we felt much more comfortable after we laid him back down in bed. A chest x-ray is pending. I attest to the content of the Intraoperative Record and any orders documented therein. Any exception s are noted below.
--- NOTE | 2018-07-15 19:43 | Hospitalist Progress Note ---
Date of Service July 15, 2018 Assessment & Plan (1) Altered mental status: Present on admission with confusion and generalized weakness Possible related to Pneumonia CT head without acute abnormality Clinically improved (2) Abnormal urinalysis: UA on admission positive for Leukocytes and bacteria Urine cx no growth has been on Zosyn IV (3) Lung infiltrate: CXR showed interval development of right basilar infiltrate Infiltrate seems to be the large pleural effision found on CT Has been on Zosyn IV Will consider to d/c abx if blood cx nedative (4) Pleural effusion: Due to Malignant pleural effusion (recurrent) CT showed large right pleural effusion with evidence of metastatic pleural disease at the right lung base. This appears to have progressed from 06/19/2018 and the pleural effusion has increased in size. Thoracic surgery consulted S/P thoracentesis performed by Dr. Hernandez where 1.6 L pleural fluid removed Clinically improves (5) Generalized weakness: Multi factorial Continue PT/OT Fall precaution (6) Pancreatic cancer: S/P Whipple procedure and chemotherapy. Follows with Dr. Gustafson New abnormal imaging from 06/27 concerning for recurrence/metastatic cancer with ascites and pleural mets/effusion Underwent a US guided thoracentesis and pleural fluid was reported to have malignant cells consistent with metastatic adenocarcioma Poor prognosis was discussed during most recent heme/onc clinic visit Patient/ are still deciding between palliative chemo with gemcitabine vs palliative care with option of hospice Will consult paliative care (7) Hypertension: Continue amlodipine, metoprolol, lisinopril Stable (8) CAD (coronary artery disease): Stable. Continue aspirin, statin (9) CKD (chronic kidney disease) stage 3, GFR 30-59 ml/min: Kidney function at baseline (Cr 1.3-1.4, GFR 50-55) Avoid nephrotic agents when able Stable DVT Ppx: SCDs. No pharmacologic agents in setting of active hematuria Code status: DNR Subjective Pt was seen and examined Lying in bed with no distress Pt feels much better today He had thoracentesis done today Denies any chest pain, palpitation, dizziness and SOB Physical Exam 2 Vital Signs (Past 24 Hours): Last Vital Signs Temp 36.3 C L 07/15/18 19:38 Pulse 70 07/15/18 19:38 Resp 22 07/15/18 19:38 BP 124/73 07/15/18 19:38 Pulse Ox 98 07/15/18 19:38 Physical Exam: General- No acute distress Head- atraumatic Eyes- PERRL, EOMI, ENT- oropharynx clear Neck- supple, no JVD Lungs- +decrease BS Heart- regular rhythm; no murmur Abdomen- normal bowel sounds, soft, nontender Extremities- no calf tenderness Neuro- alert, oriented x 3; PERRL, EOMI; no facial palsy; no dysarthria Skin- warm & dry _ (1) Pancreatic cancer Pancreatic malignancy location: (2) Altered mental status Altered mental status type: Coma depth: Coma timing:
[2018-07-16] MEDS: OXYCODONE/ACETAMINOPHEN 5mg/325mg TAB PO PRN (00:28)
[2018-07-16] MEDS: PIPERACILLIN/TAZOBACTAM 3.375 GM in DEXTROSE 5% 100 ML IV SCH ×4 (00:28→23:33)
[2018-07-16] MEDS: ALBUT/IPRATROP 3MG/0.5MG NEB 3 ML VIAL NEB SCH ×4 (07:07→19:21)
[2018-07-16] MEDS: AMLODIPINE BESYLATE 5 MG TAB PO SCH (07:46)
[2018-07-16] MEDS: METOPROLOL SUCC 50MG EXT REL TAB PO SCH (07:46)
[2018-07-16] MEDS: PANTOprazole 40 MG TAB PO SCH (07:46)
[2018-07-16] MEDS: ATORVASTATIN 40 MG TAB PO SCH (07:46)
[2018-07-16] MEDS: SERTRALINE HCL 50 MG TABLET PO SCH (07:47)
[2018-07-16] MEDS: ASPIRIN 81 MG ECTAB PO SCH (07:47)
[2018-07-16] MEDS: LISINOPRIL 40 MG TAB PO SCH (07:47)
[2018-07-16 08:46] LABS: Hematocrit (blood only) 31.4 % (42-52); Hemoglobin 10.1 g/dL (14.0-18.0); Mean Corpuscular Hgb Conc 32.2 g/dL (32-36); Mean Corpuscular Volume 92.9 fL (80-100); Mean Platelet Volume 8.1 fL (7.4-10.4); Platelet Count 234 K/uL (130-400); RDW Standard Deviation 50.5 fL (36.4-46.3); Red Blood Count 3.38 M/uL (4.7-6.1); White Blood Count 12.16 K/uL (4.8-10.8)
[2018-07-16 09:23] LABS: Calcium 7.6 mg/dl (8.5-10.1); Creatinine Clr Calc Pharmacy 44.5 ml/min; Est GFR (African American) 69.1; Est GFR (Non-African American) 59.6; Potassium 3.2 mmol/L (3.5-5.1)
--- NOTE | 2018-07-16 11:04 | Progress Note ---
DATE: 07/16/2018 Mr. Lisa was seen today 1 day after I performed a thoracentesis for 1600 mL. The Gram stain of this fluid shows no organisms and his pH was 7.40. His x-ray looked a bit better, although still had some fluid. At this point, I am hopeful his confusion improves with a UTI. He is still confused today, although a bit better. It is still unclear to me how aggressive we are going to be with Mr. Lisa. At this point, I would hold off putting a PleurX and he is on room air.
--- NOTE | 2018-07-16 17:35 | Hospitalist Progress Note ---
Date of Service July 16, 2018 Assessment & Plan (1) Altered mental status: Present on admission with confusion and generalized weakness Possible related to Pneumonia CT head without acute abnormality blood cx, pleural cx and urine cx negative Clinically improved (2) Abnormal urinalysis: UA on admission positive for Leukocytes and bacteria Urine cx no growth has been on Zosyn IV (3) Lung infiltrate: CXR showed interval development of right basilar infiltrate Infiltrate seems to be the large pleural effision found on CT Has been on Zosyn IV Will consider to d/c abx if blood cx negative (4) Pleural effusion: Due to Malignant pleural effusion (recurrent) CT showed large right pleural effusion with evidence of metastatic pleural disease at the right lung base. This appears to have progressed from 06/19/2018 and the pleural effusion has increased in size. Thoracic surgery consulted S/P thoracentesis performed by Dr. Hernandez where 1.6 L pleural fluid removed Pleural cx no growth Repeat cxr post thoracentesis showed Small residual pleural effusion right base improved from the prior exam. Clinically improves (5) Generalized weakness: Multi factorial Continue PT/OT Fall precaution (6) Pancreatic cancer: S/P Whipple procedure and chemotherapy. Follows with Dr. Gustafson New abnormal imaging from 06/27 concerning for recurrence/metastatic cancer with ascites and pleural mets/effusion Underwent a US guided thoracentesis and pleural fluid was reported to have malignant cells consistent with metastatic adenocarcioma Poor prognosis was discussed during most recent heme/onc clinic visit Patient/ are still deciding between palliative chemo with gemcitabine vs palliative care with option of hospice Will consult paliative care (7) Hypertension: Continue amlodipine, metoprolol, lisinopril Stable (8) CAD (coronary artery disease): Stable. Continue aspirin, statin (9) CKD (chronic kidney disease) stage 3, GFR 30-59 ml/min: Kidney function at baseline (Cr 1.3-1.4, GFR 50-55) Avoid nephrotic agents when able Stable DVT Ppx: SCDs. No pharmacologic agents in setting of active hematuria Code status: DNR Subjective Pt was seen and examined Lying in bed with no distress Spoke with yesterday and provided update Denies any chest pain, palpitation and SOB Physical Exam 2 Vital Signs (Past 24 Hours): Last Vital Signs Temp 36.4 C L 07/16/18 15:36 Pulse 75 07/16/18 15:38 Resp 18 07/16/18 15:38 BP 121/82 07/16/18 15:36 Pulse Ox 95 07/16/18 15:38 Physical Exam: General- No acute distress Head- atraumatic Eyes- PERRL, EOMI, ENT- oropharynx clear Neck- supple, no JVD Lungs- +decrease BS Heart- regular rhythm; no murmur Abdomen- normal bowel sounds, soft, nontender Extremities- no calf tenderness Neuro- alert, oriented x 3; PERRL, EOMI; no facial palsy; no dysarthria Skin- warm & dry _ (1) Pancreatic cancer Pancreatic malignancy location: (2) Altered mental status Altered mental status type: Coma depth: Coma timing:
[2018-07-17] MEDS: AMLODIPINE BESYLATE 5 MG TAB PO SCH (07:43)
[2018-07-17] MEDS: ATORVASTATIN 40 MG TAB PO SCH (07:43)
[2018-07-17] MEDS: METOPROLOL SUCC 50MG EXT REL TAB PO SCH (07:43)
[2018-07-17] MEDS: PANTOprazole 40 MG TAB PO SCH (07:43)
[2018-07-17] MEDS: PIPERACILLIN/TAZOBACTAM 3.375 GM in DEXTROSE 5% 100 ML IV SCH (07:43)
[2018-07-17] MEDS: SERTRALINE HCL 50 MG TABLET PO SCH (07:43)
[2018-07-17] MEDS: ASPIRIN 81 MG ECTAB PO SCH (07:44)
[2018-07-17] MEDS: LISINOPRIL 40 MG TAB PO SCH (07:44)
[2018-07-17] MEDS: ALBUT/IPRATROP 3MG/0.5MG NEB 3 ML VIAL NEB SCH (07:50)
[2018-07-17] MEDS: OXYCODONE/ACETAMINOPHEN 5mg/325mg TAB PO PRN (09:22)
[2018-07-17] MEDS ORDERED: ALBUT/IPRATROP 3MG/0.5MG NEB 3 ML VIAL NEB PRN (10:52)
[2018-07-17] MEDS ORDERED: POTASSIUM CHLORIDE 10 MEQ TABCR PO STA (11:17)
--- NOTE | 2018-07-17 15:04 | Hospitalist Progress Note ---
Date of Service July 17, 2018 Assessment & Plan (1) Altered mental status: Present on admission with confusion and generalized weakness Possible related to Pneumonia CT head without acute abnormality blood cx, pleural cx and urine cx negative Clinically improved (2) Abnormal urinalysis: UA on admission positive for Leukocytes and bacteria Urine cx no growth Received Zosyn IV x 5 days (3) Lung infiltrate: CXR showed interval development of right basilar infiltrate Infiltrate seems to be due to the large pleural effision found on CT Received 5 days course of abx with Zosyn Continue neb treatment (4) Pleural effusion: Due to Malignant pleural effusion (recurrent) CT showed large right pleural effusion with evidence of metastatic pleural disease at the right lung base. This appears to have progressed from 06/19/2018 and the pleural effusion has increased in size. Thoracic surgery consulted S/P thoracentesis performed by Dr. Hernandez where 1.6 L pleural fluid removed Pleural cx no growth Repeat cxr post thoracentesis showed Small residual pleural effusion right base improved from the prior exam. Clinically improves (5) Generalized weakness: Multi factorial Continue PT/OT Fall precaution refused home health with PT/OT (6) Pancreatic cancer: S/P Whipple procedure and chemotherapy. Follows with Dr. Gustafson New abnormal imaging from 06/27 concerning for recurrence/metastatic cancer with ascites and pleural mets/effusion Underwent a US guided thoracentesis and pleural fluid was reported to have malignant cells consistent with metastatic adenocarcioma Poor prognosis was discussed during most recent heme/onc clinic visit Patient/ are still deciding between palliative chemo with gemcitabine vs palliative care with option of hospice Follow up with oncology (7) Hypertension: Continue amlodipine, metoprolol, lisinopril Stable (8) CAD (coronary artery disease): Stable. Continue aspirin, statin (9) CKD (chronic kidney disease) stage 3, GFR 30-59 ml/min: Kidney function at baseline (Cr 1.3-1.4, GFR 50-55) Avoid nephrotic agents when able Stable DVT Ppx: SCDs. No pharmacologic agents in setting of active hematuria Code status: DNR Disposition Discharge home today Follow up with PCP Dr. Lino on 07/20 @ 11:05 AM Subjective Pt was seen and examined Lying in bed with no distress Pt said that he feels much better He said that he feels like his almost back to his baseline He said that his breathing seems to feel better Denies any chest pain, palpitation, dizziness and SOB Physical Exam 2 Vital Signs (Past 24 Hours): Last Vital Signs Temp 36.4 C L 07/17/18 12:15 Pulse 54 L 07/17/18 12:15 Resp 16 07/17/18 12:15 BP 108/68 07/17/18 12:15 Pulse Ox 94 07/17/18 12:15 Physical Exam: General- No acute distress Head- atraumatic Eyes- PERRL, EOMI, ENT- oropharynx clear Neck- supple, no JVD Lungs- Coarse BS Heart- regular rhythm; no murmur Abdomen- normal bowel sounds, soft, nontender Extremities- no calf tenderness Neuro- alert, oriented x 3; PERRL, EOMI; no facial palsy; no dysarthria Skin- warm & dry _ (1) Pancreatic cancer Pancreatic malignancy location: (2) Altered mental status Altered mental status type: Coma depth: Coma timing:
[2018-07-17] MEDS: HEPARIN 100 UNIT/ML 5ML FLUSH FLUSH PRN (15:49)
--- NOTE | 2018-07-19 12:32 | Discharge Summary ---
Date of Service July 19, 2018 Admission HPI Per Admitting Provider This is a 77yo M with a PMH of pancreatic cancer s/p Whipple and chemotherapy with possible metastasis, CKD III, CAD (s/p CABG),chronic systolic HF (EF: 40% on TTE 2017), HTN, chronic anemia, h/o stable AAA and other medical problems listed below who presents with confusion and progressive generalized weakness x 1 week. Patient was ambulating from bathroom this morning and due to confusion, forgot to wait for help from or use his walker, and ended up falling. States that he felt lightheaded prior to fall but denies dizziness, chest pain or SOB. Poor PO intake for the past week due to decreased appetite. Also endorses blood in urine since yesterday. Denies fever, chills, headache, nausea , vomiting, melena or hematochezia. Chronic RUQ abdominal pain. Was recently seen by Dr. Gustafson in June for a follow-up visit and was found to have a new abnormal imaging concerning for recurrence/metastatic cancer with ascites and pleural mets/effusion. Underwent a US guided paracentesis and pleural fluid was reported to have malignant cells consistent with metastatic adenocarcioma. Discussed poor prognosis during clinic visit and patient/ are still deciding between palliative chemo with gemcitabine or palliative care with option of hospice. Admission Exam Per Admitting Provider General Appearance: WD/WN, no apparent distress, chronically ill appearing, pleasantly confused Head: normocephalic, atraumatic Eyes: normal inspection, PERRL, EOMI ENT: hearing grossly normal, pharynx normal (dry mucous membranes) Neck: supple, no JVD, no adenopathy Respiratory/Chest: Rhonchi throughout lung mariee with rales at R lung base. No respiratory distress or accessory muscle use Cardiovascular: regular rate, rhythm, no murmur, normal peripheral pulses Abdomen/GI: normal bowel sounds, soft, tender to palpation in RUQ (chronic) Extremities/Musculoskelatal: normal inspection, no calf tenderness, normal capillary refill, no pedal edema Neurologic/Psych: alert, normal mood/affect, oriented x 3 but intermittently confused Skin: normal color, warm/dry Principal Diagnosis Altered Mental Status Generalized weakness Recurrent malignant Pleural effusion Discharge Exam General- No acute distress Head- atraumatic Eyes- PERRL, EOMI, ENT- oropharynx clear Neck- supple, no JVD Lungs- Coarse BS Heart- regular rhythm; no murmur Abdomen- normal bowel sounds, soft, nontender Extremities- no calf tenderness Neuro- alert, oriented x 3; PERRL, EOMI; no facial palsy; no dysarthria Skin- warm & dry Discharge Data Allergies Allergy/AdvReac Type Severity Reaction Status Date / Time No Known Allergies Allergy Verified 07/13/18 08:26 Consultations 07/13/18 09:33 ED Decision to Admit Stat 07/13/18 12:24 Consult Case Management - Discharge Planning Routine 07/14/18 19:45 Consult Thoracic Surgery Routine Ordered Studies 07/13/18 07:27 CT abd pelvis wo con Stat CT head/brain wo con Stat CT SCAN OF THE ABDOMEN AND PELVIS WITHOUT IV CONTRAST CLINICAL HISTORY: Generalized weakness. Back pain. COMPARISON STUDY: Abdominal CT dated 04/11/2017 and 03/09/2011. Chest CT dated . TECHNIQUE: CT scan of the abdomen and pelvis is performed from the lung bases to the proximal femora. Images are reviewed in the axial, sagittal, and coronal planes. IV contrast was not administered for this examination as per the referring clinician. A dose lowering technique was utilized adhering to the principles of ALARA. CT DOSE: 374.96 mGy.cm FINDINGS: Lung bases: The patient is status post midline sternotomy. The heart is normal in size and without pericardial effusion. The coronary arteries and aortic valve leaflets are densely calcified. Emphysematous change is suspected. No airspace consolidation is seen typical for pneumonia. There is a large right pleural effusion with associated atelectasis. 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 The largest lesion is present on image #78 and measures 3.0 cm. Additional lesions are seen at the anterior right lung base on images #31 and #51. Liver: The unenhanced liver is cirrhotic in morphology and heterogeneous in attenuation. There is nodularity of the hepatic surface contour. Pneumobilia is noted. There is minimal central intrahepatic biliary ductal dilatation. Gallbladder: Surgically absent noting clips in the gallbladder fossa. Spleen: Normal in size and attenuation. Pancreas: The pancreatic head is presumed surgically absent, likely related to previous Whipple procedure. The distal pancreas is markedly atrophic. Adrenal glands: Unremarkable. Kidneys: The unenhanced kidneys are atrophic and without hydronephrosis. There is a 10 mm calculus identified within the right renal pelvis on image #202. There are at least 2 additional small nonobstructing right renal calculi. No left renal calculi are identified. No ureteral stone is seen. Small simple and complex/hyperdense renal cysts measure up to 1.8 cm. Additional subcentimeter cortical hypodensities also likely represent cysts but are too small for definitive characterization. Abdominal vasculature: There is advanced atherosclerotic calcification of the abdominal aorta. There is a 2.9 x 3.1 cm aneurysm of the distal abdominal aorta just above the bifurcation. There is a chronic dissection versus calcified intraluminal thrombus seen within the aneurysm sac on image #251. Bowel: There is mild colonic diverticulosis without CT evidence of acute diverticulitis. Moderate colonic fecal retention is observed. The distal stomach and duodenum appear surgically absent and there is evidence of gastrojejunostomy. This is likely related to previous Whipple procedure. There are postoperative changes from right hemicolectomy with ileocolic anastomosis. No bowel obstruction is seen. The appendix is surgically absent. Peritoneum: There is a moderate volume of abdominopelvic ascites. No intraperitoneal free air is seen there are 2 fat-containing foci identified in the upper abdomen seen on images #121 and #150. These measure up to 2.4 cm and may resent foci of fat necrosis. These are unchanged from 04/11/2017 and of doubtful significance. Lymphadenopathy: None. Pelvic viscera: Evaluation of the pelvis is degraded by streak artifact from a right hip arthroplasty. The bladder is partially decompressed and grossly unremarkable. The prostate appears diminutive and heterogeneous. Fluid is noted along the right inguinal canal. Skeletal structures: The skeletal structures are osteopenic. There are postoperative changes from L3 to L5 spinal fusion. Advanced lumbosacral spondylosis is observed. No lytic or blastic lesions are seen. A right hip arthroplasty is in place. Soft tissues: There is body wall edema. IMPRESSION: 1. 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 This appears to have progressed from 06/19/2018 and the pleural effusion has increased in size. 2. Postoperative changes are consistent with previous Whipple procedure and right colonic resection. No bowel obstruction is identified. 3. The liver is cirrhotic in morphology and heterogeneous in attenuation. 4. There is a moderate volume of abdominopelvic ascites. 5. There is a 10 mm calculus in the right renal pelvis. No hydronephrosis is seen. 6. Additional smaller nonobstructing right renal calculi are identified. 7. There is a 2.9 x 3.1 cm distal abdominal aortic aneurysm. 8. Additional findings as above. Electronically signed by: Ben Alicia M.D. 07/13/2018 9:11 AM Dictated: 07/13/18 0846 Transcribed: 07/13/18 0846 XR chest 1V portable CLINICAL HISTORY: 77 years-old Male presenting with Sepsis. TECHNIQUE: Portable upright AP view of the chest was obtained. COMPARISON: 06/27/2018. FINDINGS: Left subclavian Mediport terminates in the mid SVC. Median sternotomy wires again noted. Atherosclerosis of the aorta. Cardiac silhouette normal in size though the right heart border is obscured. Significant interval increase in right pleural effusion with basilar predominant right lung opacity. Bulbous appearance of the right hilum, possibly vascular. The left lung and pleural space clear. Advanced degenerative changes of the right glenohumeral joint. IMPRESSION: 1. Interval development of right basilar infiltrate. This may represent extensive passive atelectasis in the setting of a small to moderate layering right pleural effusion though an underlying infectious infiltrate/pneumonia cannot be excluded. Electronically signed by: Low Cedeno M.D. 07/13/2018 7:58 AM Dictated: 07/13/18 0757 Transcribed: 07/13/[address] head/brain wo con CLINICAL HISTORY: 77 years-old Male presenting with altered mental status. TECHNIQUE: Multidetector CT imaging of the head was performed without the use of intravenous contrast. IV contrast: None. A dose lowering technique was used consistent with the principles of ALARA (as low as reasonably achievable). COMPARISON: 04/11/2017. CT DOSE (mGy.cm): The estimated cumulative dose is 537.48 mGy.cm. FINDINGS: Phlebotomist Associate topogram: Unremarkable. Ventricles and sulci normal in size. The foramen magnum is incompletely visualized. No hemorrhage. Brain parenchyma normal in appearance with preserved gustafson-white differentiation. No acute territorial infarct. No mass effect or midline shift. No extra-axial fluid collection. Trace mucosal thickening in the right maxillary sinus. Calvarium intact. IMPRESSION: 1. No acute intracranial abnormality. Electronically signed by: Low Cedeno M.D. 07/13/2018 8:13 AM Dictated: 07/13/18810 Transcribed: 07/13/18810 XR chest 1V portable CLINICAL HISTORY: thoracentesis pleural effusion COMPARISON STUDY: 07/13/2018 FINDINGS: No evidence for pneumothorax post right thoracentesis. Small residual pleural effusion right base improved from the prior exam. IMPRESSION: No pneumothorax post right thoracentesis. The above report was generated using voice recognition software. It may contain grammatical, syntax or spelling errors. Electronically signed by: Linwood Baez M.D. 07/15/2018 10:07 AM Dictated: 07/15/18 1006 Transcribed: 07/15/18 100 Hospital Course (1) Altered mental status: Present on admission with confusion and generalized weakness Possible related to Pneumonia CT head without acute abnormality blood cx, pleural cx and urine cx negative Clinically improved (2) Abnormal urinalysis: UA on admission positive for Leukocytes and bacteria Urine cx no growth Received Zosyn IV x 5 days (3) Lung infiltrate: CXR showed interval development of right basilar infiltrate Infiltrate seems to be due to the large pleural effision found on CT Received 5 days course of abx with Zosyn Continue neb treatment (4) Pleural effusion: Due to Malignant pleural effusion (recurrent) CT showed large right pleural effusion with evidence of metastatic pleural disease at the right lung base. This appears to have progressed from 06/19/2018 and the pleural effusion has increased in size. Thoracic surgery consulted S/P thoracentesis performed by Dr. Hernandez where 1.6 L pleural fluid removed Pleural cx no growth Repeat cxr post thoracentesis showed Small residual pleural effusion right base improved from the prior exam. Clinically improves (5) Generalized weakness: Multi factorial Continue PT/OT Fall precaution refused home health with PT/OT (6) Pancreatic cancer: S/P Whipple procedure and chemotherapy. Follows with Dr. Gustafson New abnormal imaging from 06/27 concerning for recurrence/metastatic cancer with ascites and pleural mets/effusion Underwent a US guided thoracentesis and pleural fluid was reported to have malignant cells consistent with metastatic adenocarcioma Poor prognosis was discussed during most recent heme/onc clinic visit Patient/ are still deciding between palliative chemo with gemcitabine vs palliative care with option of hospice Follow up with oncology (7) Hypertension: Continue amlodipine, metoprolol, lisinopril Stable (8) CAD (coronary artery disease): Stable. Continue aspirin, statin (9) CKD (chronic kidney disease) stage 3, GFR 30-59 ml/min: Kidney function at baseline (Cr 1.3-1.4, GFR 50-55) Avoid nephrotic agents when able Stable DVT Ppx: SCDs. No pharmacologic agents in setting of active hematuria Code status: DNR Disposition Discharge home today Follow up with PCP Dr. Lino on 07/20 @ 11:05 AM Total Time Total Time Spent Total Time Spent (In Minutes): 35 minutes Total Time Includes: Examination of the Patient, Discharge Planning, Medication Reconciliation, Communication With Other Providers and Other Discharge Plan Discharge Items Patient Disposition: Home - Home Health Services Reason For Visit: AMS, FALL, UTI IN SETTING OF PANC CANCER Discharge Diagnosis: Altered Mental Status, Generalized weakness, Recurrent malignant Pleural effusion, Discharge Goals: Decrease discomfort, Improve disease control, Improve function and Increase independence Activity: Resume your previous activity Activity Comment: As tolerated Non-emergency contact: Primary Care Provider Call non-emergency contact if: you have any medication questions and your temperature is above 101 Diet: Low Sodium (2gm) Addtl Provider Instructions: Discharge home with home health services Follow up with your primary care provider Dr. Lino on 07/20 @ 11:05 Continue physical and occupational therapy Fall precaution Use your walker to ambulate Continue nebulizer treatment (script given for nebulizer machine) Prescriptions: New ipratropium-albuterol 0.5 mg-3 mg(2.5 mg base)/3 mL Solution For Nebulization 3 ml NEB Q6H PRN (Reason: SOB and wheezing) 30 Days Qty: 30 RF: 0 guaifenesin 100 mg granules in packet 200 mg PO Q6H PRN (Reason: congestion/cough) Qty: 30 RF: 0 Continue ondansetron HCl 4 mg tablet 4 mg PO Q8H PRN (Reason: Nausea) RF: 0 oxycodone-acetaminophen 5-325 mg tablet 1 tab PO Q4H PRN (Reason: Pain (Scale Score 7-10)) RF: 0 pantoprazole 40 mg tablet,delayed release (DR/EC) 40 mg PO QAM RF: 0 sertraline 25 mg tablet 25 mg PO QAM RF: 0 docusate sodium 100 mg Tablet 100 mg PO DAILY PRN (Reason: Constipation) RF: 0 gfqffg-dzhbjoqq-lnolvln 6,000-19,000 -30,000 unit capsule,delayed release(DR/ EC) 1 tab PO QID RF: 0 atorvastatin 40 mg tablet 40 mg PO QAM RF: 0 aspirin 81 mg Tablet,Delayed Release (Dr/Ec) 81 mg PO QAM RF: 0 metoprolol succinate 50 mg tablet extended release 24 hr 50 mg PO DAILY RF: 0 amlodipine 10 mg tablet 10 mg PO DAILY RF: 0 lisinopril 40 mg tablet 40 mg PO DAILY RF: 0 Visit Report Forms: My [facility] Stand-Alone Forms: [facility] Discharge Orders: Discharge Order (Routine); Ordered 07/17/18 Ordered By: Car Osman Admission Data Admit Date/Time: 07/13/18 10:47 Attending Provider: Car Osman Admit Provider: Car Osman Primary Care Provider: Josue Lino Other Providers: Car Osman ; Pato Hernandez Service: Medical Other Interventions: Discharge Summary Assessment (RN) Last Done: 07/17/18 15:36 DC Date/Time DO NOT enter until pt leaves facility: 07/17/18 16:45
== END 2018-07-17 16:45 | disposition home health service (06) | DRG 193 ==
LOC: ED 07:00 → 4E 10:47